=== PATIENT | female | born 1985 | race Caucasian/White ===

== ENCOUNTER 2017-12-12 20:15 | Emergency (ER) | payer OTHER ==
[2017-12-12 20:22] VITALS: TEMP 98.6
--- NOTE | 2017-12-12 21:16 | ED ---
Chest Pain HPI - General Chief Complaint: Chest Pain Stated Complaint: chest pain Time Seen by Provider: 12/12/17 21:15 Source: patient, RN notes reviewed, old records reviewed Mode of arrival: wheelchair Limitations: no limitations - History of Present Illness Initial Comments: This is a 32-year-old female the ER today. This patient has a for evaluation of chest pain chest pain shortness of breath with rapid heart rate. Patient has no significant medical history no heart history no high blood pressure cholesterol no diabetes. Patient has never been to ER for similar issue before. No fevers no cough or congestion or shortness of breath. Patient states she may have pulled muscle unsure of how the -: hour(s) Onset: during rest Pain Location: substernal, right chest Pain Radiation: none Severity: mild, moderate Severity scale (1-10): 7 Consistency: constant Improves With: nothing Worsens With: nothing Treatments Prior to Arrival: none - Related Data Home Medications Medication Instructions Recorded Confirmed Ibuprofen [Motrin Ib] 200 - 800 mg PO Q6H PRN 12/12/17 12/12/17 Allergies Allergy/AdvReac Type Severity Reaction Status Date / Time phenazopyridine HCl Allergy Anaphylaxis Verified 12/12/17 21:28 [From Pyridium] Review of Systems ROS Statement: Those systems with pertinent positive or pertinent negative responses have been documented in the HPI. ROS Other: All systems not noted in ROS Statement are negative. EKG Findings - EKG Comments: EKG Findings:: EKG shows sinus tachycardia rate 120, ND 136, QRS 78, QTc 483 Past Medical History Past Medical History: No Reported History History of Any Multi-Drug Resistant Organisms: None Reported, MRSA Date of last positivie culture/infection: 05/2013 MDRO Source:: buttocks Past Surgical History: No Surgical Hx Reported Past Psychological History: Anxiety, Bipolar, Depression Smoking Status: Current every day smoker Past Alcohol Use History: None Reported Past Drug Use History: None Reported General Exam Limitations: no limitations General appearance: alert, in no apparent distress, anxious Head exam: Present: atraumatic, normocephalic, normal inspection Eye exam: Present: normal appearance, PERRL, EOMI. Absent: scleral icterus, conjunctival injection, periorbital swelling ENT exam: Present: normal exam, mucous membranes moist Neck exam: Present: normal inspection. Absent: tenderness, meningismus, lymphadenopathy Respiratory exam: Present: normal lung sounds bilaterally. Absent: respiratory distress, wheezes, rales, rhonchi, stridor Cardiovascular Exam: Present: regular rate, normal rhythm, normal heart sounds. Absent: systolic murmur, diastolic murmur, rubs, gallop, clicks GI/Abdominal exam: Present: soft, normal bowel sounds. Absent: distended, tenderness, guarding, rebound, rigid Extremities exam: Present: normal inspection, full ROM, normal capillary refill. Absent: tenderness, pedal edema, joint swelling, calf tenderness Back exam: Present: normal inspection Neurological exam: Present: alert, oriented X3, CN II-XII intact Psychiatric exam: Present: normal affect, normal mood Skin exam: Present: warm, dry, intact, normal color. Absent: rash Course Vital Signs 12/12/17 20:17 Temperature 98.6 F Pulse Rate 133 H Respiratory 18 Rate Blood Pressure 129/81 O2 Sat by Pulse 100 Oximetry - Reevaluation(s) Reevaluation #1: 12/12/17 21:42 Medical records thoroughly reviewed with multiple ER visits for nonspecific complaints regarding pain Reevaluation #2: 12/12/17 21:42 Patient's in mild distress crying asking for pain medication Reevaluation #3: 12/12/17 21:42 Studies Chest x-rays negative for acute disease Chest Pain MDM - MDM 49 female with nonspecific chest pain costochondritis given Tylenol here, okay for discharge home Disposition Clinical Impression: Chest pain, Atypical chest pain Disposition: HOME SELF-CARE Condition: Good Instructions: Chest Pain (ED), Costochondritis (ED) Is patient prescribed a controlled substance at d/c from ED?: No Referrals: Campbell Hernandez MD [Primary Care Provider] - 1-2 days
--- NOTE | 2017-12-12 21:24 | XR ---
EXAMINATION: XR chest 2V DATE AND TIME: 12/12/2017 9:19 PM CLINICAL INDICATION: chest pain TECHNIQUE: PA and lateral COMPARISON: 03/24/2013. FINDINGS: The lungs are clear. The pleural spaces are negative. The cardiac silhouette is not enlarged. The remainder of the mediastinal silhouette is unremarkable. The skeletal structures and soft tissues are negative for acute findings. IMPRESSION: NO ACUTE PROCESS.
[2017-12-12] MEDS ORDERED: HYDROcodone/APAP 5-325MG 1 EACH TAB PO STA (21:45)
[2017-12-12] MEDS ORDERED: DIAZEPAM 5 MG TAB PO STA (21:45)
[2017-12-12] MEDS ORDERED: ACETAMINOPHEN TAB 325 MG TAB PO STA (21:45)
[2017-12-12 21:54] VITALS: BP 139/83; PULSE 99; RESP 20
== END 2017-12-12 21:56 | disposition home or self-care (01) ==
LOC: EC 20:15
DX: M94.0 Chondrocostal junction syndrome [Tietze] (principal); R00.0 Tachycardia, unspecified; F17.200 Nicotine dependence, unspecified, uncomplicated; Z86.14 Personal history of Methicillin resistant Staphylococcus aureus infection; Z88.8 Allergy status to other drugs, medicaments and biological substances
CPT/HCPCS: 71046; 93005; 99285

== ENCOUNTER 2018-02-25 21:15 | Emergency (ER) | payer OTHER ==
[2018-02-25] MEDS ORDERED: SODIUM CHLORIDE 0.9% 1,000 ML IV STA (22:11)
[2018-02-25] MEDS ORDERED: IPRATROPIUM-ALBUTEROL 3 ML NEB INHALATION STA (22:14)
--- NOTE | 2018-02-25 22:15 | XR ---
EXAMINATION TYPE: XR chest 2V DATE OF EXAM: 02/25/2018 COMPARISON: 12/12/2017 HISTORY: Chest pain TECHNIQUE: Frontal and lateral views of the chest are obtained. FINDINGS: Heart and mediastinum are normal. Lungs are clear. Diaphragm is normal. Bony thorax appear s normal. There are chest leads. IMPRESSION: Normal chest. No change.
[2018-02-25 23:05] LABS: Appearance,Urine Clear (Clear); Bilirubin,Urine Negative (Negative); Blood,Urine Negative (Negative); Color,Urine Yellow; Glucose,Urine (UA) Negative (Negative); Ketones,Urine Negative (Negative); Leukocyte Esterase,Urine Negative (Negative); Nitrite,Urine Negative (Negative); PH, Urine 5.5 (5.0-8.0); Protein,Urine Negative (Negative); Urobilinogen,Urine <2.0 mg/dL (<2.0)
[2018-02-25 23:06] LABS: Basophils % (A) 0 %; Eosinophils # (A) 0.3 k/uL (0-0.7); Eosinophils % (A) 2 %; HCT 39.9 % (34.0-46.0); HGB 13.4 gm/dL (11.4-16.0); Lymphocytes # (A) 2.7 k/uL (1.0-4.8); Lymphocytes % (A) 22 %; MCH 28.8 pg (25.0-35.0); MCHC 33.5 g/dL (31.0-37.0); MCV 85.9 fL (80.0-100.0); Monocytes # (A) 1.2 k/uL (0-1.0); Monocytes % (A) 10 %; Neutrophils % (A) 64 %; Platelet Count 216 k/uL (150-450); RBC 4.65 m/uL (3.80-5.40); RDW 13.8 % (11.5-15.5); WBC 12.4 k/uL (3.8-10.6)
[2018-02-25 23:15] LABS: ALT 37 U/L (9-52); AST 23 U/L (14-36); Albumin 3.4 g/dL (3.5-5.0); Alkaline Phosphatase 92 U/L (38-126); Anion Gap 7 mmol/L; Blood Urea Nitrogen 12 mg/dL (7-17); Calcium 8.6 mg/dL (8.4-10.2); Carbon Dioxide 25 mmol/L (22-30); Chloride 106 mmol/L (98-107); Glucose 103 mg/dL (74-99); Potassium 4.4 mmol/L (3.5-5.1); Sodium 138 mmol/L (137-145); Total Bilirubin <0.1 mg/dL (0.2-1.3); Total Protein 6.6 g/dL (6.3-8.2)
[2018-02-25] MEDS ORDERED: IBUPROFEN 800 MG TAB PO STA (23:54)
[2018-02-26] MEDS ORDERED: ONDANSETRON 4 MG/2 ML VIAL IVP STA (00:28)
[2018-02-26 00:42] VITALS: TEMP 98.6
--- NOTE | 2018-02-26 00:51 | CT ---
EXAMINATION TYPE: CT soft tissue neck w con DATE OF EXAM: 02/26/2018 12:23 AM COMPARISON: None HISTORY: Sore throat CT DLP: 276.30 mGycm Automated exposure control for dose reduction was used. CONTRAST: CT scan of the neck is performed following with IV Contrast, patient injected with 100 mL of Isovue 3 00. Axial images are obtained, coronal and sagittal reformatted images are reviewed. FINDINGS: Multiple axial sections were obtained from the level of the pulmonary artery to the mid orbits with i ntravenous contrast. There is mucosal thickening in the ethmoid air cells. Parotid glands are symmetric. Submandibular tang ivary glands are symmetric. Epiglottis is normal. There is no evidence of a pharyngeal mass. The trac hea appears normal. There is enlargement of the adenoids and significant narrowing of the nasopharyng eal airway. There is mild symmetric hypertrophy of the tonsils. There is normal branching pattern of the great vessels on the aortic arch. Thyroid gland is symmetric . There is normal contrast opacification of the carotid arteries and jugular veins. There is normal c ontrast opacification of the vertebral arteries. There are numerous bilateral anterior triangle cervi abhilash lymph nodes. Lymph nodes measure up to 2 cm. There is spondylosis at C5-6 with endplate spur form ation and some mild encroachment on the spinal canal. IMPRESSION: There is moderate anterior triangle bilateral cervical lymphadenopathy. There is enlarge ment of the tonsils and adenoids. This is consistent with nonspecific inflammatory disease.
--- NOTE | 2018-02-26 01:00 | ED ---
General Adult HPI - General Chief complaint: Upper Respiratory Infection Stated complaint: Sore throat Source: patient, RN notes reviewed, old records reviewed Mode of arrival: ambulatory Limitations: no limitations - History of Present Illness Initial comments: 33-year-old female patient no pertinent past medical history presents to ED with 3 days of sore throat, painful swallowing. Patient also complains of dry cough of 3 days, some shortness of breath. Patient complains of nausea without emesis. Patient denies chest pain. Patient denies abdominal pain. Patient dysuria. Patient states that she believes she has strep throat, states that she has had severe strep throat as an adult per her history. Systemic: Pt denies fatigue, myalgia, fever/chills, rash. Pt denies weakness, night sweats, weight loss. Neuro: Pt denies headache, visual disturbances, syncope or pre-syncope. HEENT: Pt denies ocular discharge or irritation, otalgia, rhinorrhea, or notable lymphadenopathy. Cardiopulmonary: Pt denies chest pain, heart palpitations, dyspnea on exertion. Abdominal/GI: Pt denies abdominal pain, n/v/d. : Pt denies dysuria, burning w/ urination, frequency/urgency. Denies new onset urinary or bowel incontinence. MSK: Pt denies myalgia, loss of strength or function in extremities. Neuro: Pt denies new onset weakness, paresthesias. - Related Data Home Medications Medication Instructions Recorded Confirmed Ibuprofen [Motrin Ib] 200 - 800 mg PO Q6H PRN 12/12/17 12/12/17 Previous Rx's Medication Instructions Recorded Acetaminophen Tab [Tylenol Tab] 500 mg PO Q4H #30 tablet 12/12/17 Naproxen [Naprosyn] 500 mg PO Q12HR PRN #30 tab 12/12/17 Amoxicillin 500 mg PO Q12HR 10 Days #20 day 02/26/18 Allergies Allergy/AdvReac Type Severity Reaction Status Date / Time phenazopyridine HCl Allergy Anaphylaxis Verified 02/25/18 21:21 [From Pyridium] Review of Systems ROS Statement: Those systems with pertinent positive or pertinent negative responses have been documented in the HPI. ROS Other: All systems not noted in ROS Statement are negative. Past Medical History Past Medical History: No Reported History History of Any Multi-Drug Resistant Organisms: None Reported, MRSA Date of last positivie culture/infection: 05/2013 MDRO Source:: buttocks Past Surgical History: No Surgical Hx Reported Past Psychological History: Anxiety, Bipolar, Depression Smoking Status: Current every day smoker Past Alcohol Use History: None Reported Past Drug Use History: None Reported General Exam - General Exam Comments Initial Comments: Constitutional: NAD, AOX3, Pt has pleasant affect. HEENT: NC/AT, trachea midline, neck supple, mild anterior cervical lymphadenopathy. Posterior pharynx non erythematous, without exudates. External ears appear normal, without discharge. Mucous membranes moist. Eyes PERRLA, EOM intact. There is no scleral icterus. No pallor noted. No muffled are up-to- date or worse. No difficulty handling secretions. No posterior pharyngeal edema. Cardiopulmonary: RRR, no murmurs, rubs or gallops, no JVD noted. Lungs CTAB in anterior and posterior sloan. No peripheral edema. Abdominal exam: Abdomen soft and non-distended. Abdomen non-tender to palpation in all 4 quadrants. Bowel sounds active in LLQ. No hepatosplenomegaly. No ecchymosis no respirations distress. Neuro: CN II-XII grossly intact. No nuchal rigidity. MSK: No posterior calf tenderness bilaterally, homans sign negative bilaterally. Posterior tibialis and radial pulse +2 bilaterally. Sensation intact in upper and lower extremities. Full active ROM in upper and lower extremities, 5/5 stregnth. Limitations: no limitations Course Vital Signs 02/25/18 02/25/18 02/25/18 21:17 21:30 21:32 Temperature 98.4 F 99.1 F Pulse Rate 135 H 125 H Respiratory 24 20 21 Rate Blood Pressure 123/79 123/77 O2 Sat by Pulse 99 99 Oximetry 02/25/18 02/25/18 02/25/18 21:46 22:52 22:59 Temperature 100.2 F H Pulse Rate 114 H 112 H 117 H Respiratory 22 Rate Blood Pressure 118/80 O2 Sat by Pulse 97 Oximetry 02/25/18 02/26/18 02/26/18 23:06 00:40 02:45 Temperature 98.6 F Pulse Rate 111 H 112 H 95 Respiratory 20 16 Rate Blood Pressure 124/68 90/48 O2 Sat by Pulse 99 98 Oximetry Medical Decision Making - Medical Decision Making 33-year-old female patient no pertinent past medical history presents to ED with 3 days of sore throat, painful swallowing. Patient also complains of rectal cough of 3 days, some shortness of breath. Patient complains of nausea without emesis. Patient denies chest pain. Patient denies abdominal pain. Patient dysuria. Physical exam displayed mild tachycardia which resolved with IV fluids, mild anterior cervical lymphadenopathy. No other acute pathology. Laboratory investigations displayed slight leukocytosis at 12.4. Negative d- dimer. Non impressive CMP. Ua non impressive. Influenza, strep swabs negative. CT soft tissue neck with contrast displayed moderate anterior cervical lymphadenopathy. Enlargement of tonsils and adenoids. Consistent with nonspecific inflammatory disease. Chest x-ray displayed no acute process. Patient was given 2 L of fluid, 1 g Rocephin ED. EKG displayed tachycardia but no concern for acute ischemia or pathology. Pt to be treated for pharyngitis. Amoxicillin 500mg BID x10 days. Patient to follow up with PCP in 1-2 days. Patient return to ED if any new signs or symptoms develop or if condition worsens in anyway. Case discussed and pt discharged by Dr. Jules. - Lab Data Result diagrams: 02/25/18 22:47 02/25/18 22:47 Lab Results 02/25/18 02/25/18 02/25/18 Range/Units 21:53 21:53 22:47 WBC 12.4 H (3.8-10.6) k/uL RBC 4.65 (3.80-5.40) m/uL Hgb 13.4 (11.4-16.0) gm/dL Hct 39.9 (34.0-46.0) % MCV 85.9 (80.0-100.0) fL MCH 28.8 (25.0-35.0) pg MCHC 33.5 (31.0-37.0) g/dL RDW 13.8 (11.5-15.5) % Plt Count 216 (150-450) k/uL Neutrophils % 64 % Lymphocytes % 22 % Monocytes % 10 % Eosinophils % 2 % Basophils % 0 % Neutrophils # 8.0 H (1.3-7.7) k/uL Lymphocytes # 2.7 (1.0-4.8) k/uL Monocytes # 1.2 H (0-1.0) k/uL Eosinophils # 0.3 (0-0.7) k/uL Basophils # 0.0 (0-0.2) k/uL D-Dimer (<0.60) mg/L FEU Sodium (137-145) mmol/L Potassium (3.5-5.1) mmol/L Chloride (98-107) mmol/L Carbon Dioxide (22-30) mmol/L Anion Gap mmol/L BUN (7-17) mg/dL Creatinine (0.52-1.04) mg/dL Est GFR (CKD-EPI)AfAm (>60 ml/min/1.73 sqM) Est GFR (CKD-EPI)NonAf (>60 ml/min/1.73 sqM) Glucose (74-99) mg/dL Plasma Lactic Acid Margarito (0.7-2.0) mmol/L Calcium (8.4-10.2) mg/dL Total Bilirubin (0.2-1.3) mg/dL AST (14-36) U/L ALT (9-52) U/L Alkaline Phosphatase (38-126) U/L Total Protein (6.3-8.2) g/dL Albumin (3.5-5.0) g/dL Urine Color Urine Appearance (Clear) Urine pH (5.0-8.0) Ur Specific [place] (1.001-1.035) Urine Protein (Negative) Urine Glucose (UA) (Negative) Urine Ketones (Negative) Urine Blood (Negative) Urine Nitrite (Negative) Urine Bilirubin (Negative) Urine Urobilinogen (<2.0) mg/dL Ur Leukocyte Esterase (Negative) Urine HCG, Qual (Not Detectd) Influenza Type A RNA Not Detected (Not Detectd) Influenza Type B (PCR) Not Detected (Not Detectd) Group A Strep Rapid Negative (Negative) 02/25/18 02/25/18 02/25/18 Range/Units 22:47 22:47 22:47 WBC (3.8-10.6) k/uL RBC (3.80-5.40) m/uL Hgb (11.4-16.0) gm/dL Hct (34.0-46.0) % MCV (80.0-100.0) fL MCH (25.0-35.0) pg MCHC (31.0-37.0) g/dL RDW (11.5-15.5) % Plt Count (150-450) k/uL Neutrophils % % Lymphocytes % % Monocytes % % Eosinophils % % Basophils % % Neutrophils # (1.3-7.7) k/uL Lymphocytes # (1.0-4.8) k/uL Monocytes # (0-1.0) k/uL Eosinophils # (0-0.7) k/uL Basophils # (0-0.2) k/uL D-Dimer (<0.60) mg/L FEU Sodium 138 (137-145) mmol/L Potassium 4.4 (3.5-5.1) mmol/L Chloride 106 (98-107) mmol/L Carbon Dioxide 25 (22-30) mmol/L Anion Gap 7 mmol/L BUN 12 (7-17) mg/dL Creatinine 0.67 (0.52-1.04) mg/dL Est GFR (CKD-EPI)AfAm >90 (>60 ml/min/1.73 sqM) Est GFR (CKD-EPI)NonAf >90 (>60 ml/min/1.73 sqM) Glucose 103 H (74-99) mg/dL Plasma Lactic Acid Margarito (0.7-2.0) mmol/L Calcium 8.6 (8.4-10.2) mg/dL Total Bilirubin <0.1 L (0.2-1.3) mg/dL AST 23 (14-36) U/L ALT 37 (9-52) U/L Alkaline Phosphatase 92 (38-126) U/L Total Protein 6.6 (6.3-8.2) g/dL Albumin 3.4 L (3.5-5.0) g/dL Urine Color Yellow Urine Appearance Clear (Clear) Urine pH 5.5 (5.0-8.0) Ur Specific [place] 1.020 (1.001-1.035) Urine Protein Negative (Negative) Urine Glucose (UA) Negative (Negative) Urine Ketones Negative (Negative) Urine Blood Negative (Negative) Urine Nitrite Negative (Negative) Urine Bilirubin Negative (Negative) Urine Urobilinogen <2.0 (<2.0) mg/dL Ur Leukocyte Esterase Negative (Negative) Urine HCG, Qual Not Detected (Not Detectd) Influenza Type A RNA (Not Detectd) Influenza Type B (PCR) (Not Detectd) Group A Strep Rapid (Negative) 02/25/18 02/25/18 Range/Units 22:47 22:47 WBC (3.8-10.6) k/uL RBC (3.80-5.40) m/uL Hgb (11.4-16.0) gm/dL Hct (34.0-46.0) % MCV (80.0-100.0) fL MCH (25.0-35.0) pg MCHC (31.0-37.0) g/dL RDW (11.5-15.5) % Plt Count (150-450) k/uL Neutrophils % % Lymphocytes % % Monocytes % % Eosinophils % % Basophils % % Neutrophils # (1.3-7.7) k/uL Lymphocytes # (1.0-4.8) k/uL Monocytes # (0-1.0) k/uL Eosinophils # (0-0.7) k/uL Basophils # (0-0.2) k/uL D-Dimer 0.47 (<0.60) mg/L FEU Sodium (137-145) mmol/L Potassium (3.5-5.1) mmol/L Chloride (98-107) mmol/L Carbon Dioxide (22-30) mmol/L Anion Gap mmol/L BUN (7-17) mg/dL Creatinine (0.52-1.04) mg/dL Est GFR (CKD-EPI)AfAm (>60 ml/min/1.73 sqM) Est GFR (CKD-EPI)NonAf (>60 ml/min/1.73 sqM) Glucose (74-99) mg/dL Plasma Lactic Acid Margar[place] 1.2 (0.7-2.0) mmol/L Calcium (8.4-10.2) mg/dL Total Bilirubin (0.2-1.3) mg/dL AST (14-36) U/L ALT (9-52) U/L Alkaline Phosphatase (38-126) U/L Total Protein (6.3-8.2) g/dL Albumin (3.5-5.0) g/dL Urine Color Urine Appearance (Clear) Urine pH (5.0-8.0) Ur Specific [place] (1.001-1.035) Urine Protein (Negative) Urine Glucose (UA) (Negative) Urine Ketones (Negative) Urine Blood (Negative) Urine Nitrite (Negative) Urine Bilirubin (Negative) Urine Urobilinogen (<2.0) mg/dL Ur Leukocyte Esterase (Negative) Urine HCG, Qual (Not Detectd) Influenza Type A RNA (Not Detectd) Influenza Type B (PCR) (Not Detectd) Group A Strep Rapid (Negative) - EKG Data -: EKG Interpreted by Me EKG Comments: Ventricular rate 114, painful 1:30, QRS 104, QT/QTC 338/465. Sinus tachycardia otherwise normal EKG. Disposition Clinical Impression: Pharyngitis Disposition: HOME SELF-CARE Condition: Good Instructions: Pharyngitis (ED) Additional Instructions: Patient to adhere to previously discussed treatment plan and will take medication(s) as directed. Patient to follow up with PCP in 1-2 days. Patient to return to ED if symptoms do not improve. Prescriptions: Amoxicillin 500 mg PO Q12HR 10 Days #20 day Is patient prescribed a controlled substance at d/c from ED?: No Referrals: Campbell Hernandez MD [Primary Care Provider] - 1-2 days
[2018-02-26] MEDS ORDERED: SODIUM CHLORIDE 0.9% 1,000 ML IV STA (01:19)
[2018-02-26] MEDS ORDERED: ACET/COD 240MG/24MG LIQ 10 ML SYRG PO STA (01:27)
[2018-02-26] MEDS ORDERED: traMADol 50 MG TAB PO STA (01:38)
[2018-02-26 02:49] VITALS: BP 90/48; PULSE 95; RESP 16
== END 2018-02-26 02:45 | disposition home or self-care (01) ==
LOC: EC 21:15
DX: J02.9 Acute pharyngitis, unspecified (principal); R06.02 Shortness of breath; R11.0 Nausea; R00.0 Tachycardia, unspecified; R59.0 Localized enlarged lymph nodes; D72.829 Elevated white blood cell count, unspecified; F17.200 Nicotine dependence, unspecified, uncomplicated; Z86.14 Personal history of Methicillin resistant Staphylococcus aureus infection; Z88.8 Allergy status to other drugs, medicaments and biological substances
CPT/HCPCS: 36415; 94640; 93005; 85379; 80053; 83605; 85025; 81003; 81025; 87081; 87430; 87502; 71046; 70491; 99284; 96365; 96375; 96361 ×2; J2405; J0696; Q9967

== ENCOUNTER 2018-05-03 04:17 | Emergency (ER) | payer OTHER ==
[2018-05-03 04:26] VITALS: BP 129/87; PULSE 98; RESP 20; TEMP 98.3
--- NOTE | 2018-05-03 04:44 | ED ---
ENT HPI - General Chief complaint: ENT Stated complaint: Ear pain Time Seen by Provider: 05/03/18 04:28 Source: patient Mode of arrival: ambulatory Limitations: no limitations - History of Present Illness Initial comments: This is a 33-year-old female who presents emergency department for right ear pain. She states that she had just taken a shower and was cleaning her ear with a Q-tip. Her dog ran into her arm in the Q-tip was shoved into her ear. She states that she does have some hearing loss out of that ear. She also admits to some pain and bleeding from that ear. She denies any headaches. No numbness or tingling. No other injuries. - Related Data Previous Rx's Medication Instructions Recorded Ciprofloxacin-Dexameth [Ciprodex 4 drops RIGHT EAR BID 7 Days #1 05/03/18 Otic Susp] bottle Allergies Allergy/AdvReac Type Severity Reaction Status Date / Time phenazopyridine HCl Allergy Anaphylaxis Verified 05/03/18 04:26 [From Pyridium] Review of Systems ROS Statement: Those systems with pertinent positive or pertinent negative responses have been documented in the HPI. ROS Other: All systems not noted in ROS Statement are negative. Past Medical History Past Medical History: No Reported History History of Any Multi-Drug Resistant Organisms: None Reported, MRSA Date of last positivie culture/infection: 05/2013 MDRO Source:: buttocks Past Surgical History: No Surgical Hx Reported Past Psychological History: Anxiety, Bipolar, Depression Smoking Status: Current every day smoker Past Alcohol Use History: None Reported Past Drug Use History: None Reported General Exam - General Exam Comments Initial Comments: Constitutional: [Awake alert] [Appears comfortable] Head: [Normocephalic atraumatic] Eyes: [no conjunctival injection] [No scleral icterus] [EOMI] ENT: The right external ear canal has some blood. No lacerations are visualized. The TM does appear to be torn and perforated at the anterior aspect. The posterior aspect seems to be intact however difficult to visualize because of blood. No foreign bodies were noticed. The area did appear clean. Left TM was normal. Neck: [No JVD] [Supple] Heart: [Regular rate rhythm] [normal S1-S2] [no murmurs] Lungs: [Clear to auscultation bilaterally] [No wheezing] [No rales] Abdomen: [Soft] [nondistended] [nontender] Extremities: [Non edematous] [DP pulses intact] [Radial pulses intact] Neuro: [A&Ox3] [No focal neurologic deficits] Psych: [Appropriate mood and affect] Limitations: no limitations Course Vital Signs 05/03/18 04:22 Temperature 98.3 F Pulse Rate 98 Respiratory 20 Rate Blood Pressure 129/87 O2 Sat by Pulse 97 Oximetry Medical Decision Making - Medical Decision Making This is a 33-year-old came in for right ear injury. The patient did appear to have a perforated tympanic membrane. Due to this fact going to start her on Ciprodex drops. She was instructed to call ENT today to get follow-up for evaluation. Told to return if she had worsening pain or any other symptoms. All questions answered. Disposition Clinical Impression: Perforated tympanic membrane Disposition: HOME SELF-CARE Condition: Stable Instructions (If sedation given, give patient instructions): Ruptured Eardrum ( ED) Additional Instructions: No swimming. Keep R ear dry at all times. Follow up with ENT tomorrow. Prescriptions: Ciprofloxacin-Dexameth [Ciprodex Otic Susp] 4 drops RIGHT EAR BID 7 Days #1 bottle Is patient prescribed a controlled substance at d/c from ED?: No Referrals: Campbell Hernandez MD [Primary Care Provider] - 1-2 days Samuel Raza MD [STAFF PHYSICIAN] - 1-2 days
== END 2018-05-03 04:51 | disposition home or self-care (01) ==
LOC: EC 04:17
DX: S09.21XA Traumatic rupture of right ear drum, initial encounter (principal); F17.200 Nicotine dependence, unspecified, uncomplicated; Z86.14 Personal history of Methicillin resistant Staphylococcus aureus infection; Z88.8 Allergy status to other drugs, medicaments and biological substances; W54.1XXA Struck by dog, initial encounter; Y93.E8 Activity, other personal hygiene
CPT/HCPCS: 99282

== ENCOUNTER 2018-06-12 17:18 | Emergency (ER) | payer OTHER ==
[2018-06-12] MEDS ORDERED: SODIUM CHLORIDE 0.9% 1,000 ML IV STA (18:18)
[2018-06-12] MEDS ORDERED: PANTOPRAZOLE 40 MG/10 ML VIAL IVP STA (18:18)
[2018-06-12] MEDS ORDERED: KETOROLAC 30 MG/ML 1 ML VIAL IVP STA (18:18)
[2018-06-12] MEDS ORDERED: ONDANSETRON 4 MG/2 ML VIAL IVP STA (18:18)
--- NOTE | 2018-06-12 18:33 | ED ---
Back Pain HPI - General Chief Complaint: Back Pain/Injury Stated Complaint: flank pain Time Seen by Provider: 06/12/18 18:09 Source: patient, RN notes reviewed, old records reviewed Limitations: no limitations - History of Present Illness Initial Comments: Patient is a 33-year-old female presents today with lower back pain and reports that she has bilateral kidney pain. Patient states that she has noticed recurrence been dark. She has had history of urinary tract infections. She denies any fever but reports she's felt chilled. She denies any nausea or vomiting. She states that she's had normal stools. Patient states that she has had no other complaints. - Related Data Home Medications Medication Instructions Recorded Confirmed Ibuprofen [Motrin] 800 mg PO TID PRN 06/12/18 06/12/18 Allergies Allergy/AdvReac Type Severity Reaction Status Date / Time phenazopyridine HCl Allergy Anaphylaxis Verified 06/12/18 17:50 [From Pyridium] Review of Systems ROS Statement: Those systems with pertinent positive or pertinent negative responses have been documented in the HPI. ROS Other: All systems not noted in ROS Statement are negative. Past Medical History Past Medical History: No Reported History History of Any Multi-Drug Resistant Organisms: None Reported, MRSA Date of last positivie culture/infection: 05/2013 MDRO Source:: buttocks Past Surgical History: No Surgical Hx Reported Past Psychological History: Anxiety, Bipolar, Depression Smoking Status: Current every day smoker Past Alcohol Use History: None Reported Past Drug Use History: None Reported General Exam - General Exam Comments Initial Comments: 33-year-old female. Alert and oriented 3. Patient appears in no significant distress. Limitations: no limitations General appearance: alert, in no apparent distress Head exam: Present: atraumatic, normocephalic, normal inspection Eye exam: Present: normal appearance, PERRL, EOMI. Absent: scleral icterus, conjunctival injection, periorbital swelling ENT exam: Present: normal exam, mucous membranes moist Neck exam: Present: normal inspection. Absent: tenderness, meningismus, lymphadenopathy Respiratory exam: Present: normal lung sounds bilaterally. Absent: respiratory distress, wheezes, rales, rhonchi, stridor Cardiovascular Exam: Present: regular rate, normal rhythm, normal heart sounds. Absent: systolic murmur, diastolic murmur, rubs, gallop, clicks GI/Abdominal exam: Present: soft, normal bowel sounds, other (Bilateral CVA tenderness.). Absent: distended, tenderness, guarding, rebound, rigid Extremities exam: Present: normal inspection, full ROM, normal capillary refill. Absent: tenderness, pedal edema, joint swelling, calf tenderness Back exam: Present: normal inspection Neurological exam: Present: alert, oriented X3, CN II-XII intact Psychiatric exam: Present: normal affect, normal mood Skin exam: Present: warm, dry, intact, normal color. Absent: rash Course Vital Signs 06/12/18 17:42 Temperature 98.3 F Pulse Rate 91 Respiratory 18 Rate Blood Pressure 151/92 O2 Sat by Pulse 98 Oximetry Medical Decision Making - Medical Decision Making Patient is a 33-year-old female presents emergency room today with bilateral back pain and complains kidney pain. Patient states she's had subjective chills . At this time vital signs are stable. No fever. Patient has been given fluids and Toradol. KUB is negative for any acute process. Lab work was reviewed and unremarkable. Urinalysis shows no infection or blood. Discussed the pain can be osseous skeletal nature. I discussed that Patient should follow-up with her PCP. Discharge and Patient and temperature medicine. All cushions answer return parameters were discussed. - Lab Data Result diagrams: 06/12/18 18:35 06/12/18 18:35 Lab Results 06/12/18 06/12/18 06/12/18 Range/Units 18:35 18:35 18:35 WBC 8.0 (3.8-10.6) k/uL RBC 4.72 (3.80-5.40) m/uL Hgb 13.1 (11.4-16.0) gm/dL Hct 39.5 (34.0-46.0) % MCV 83.7 (80.0-100.0) fL MCH 27.8 (25.0-35.0) pg MCHC 33.2 (31.0-37.0) g/dL RDW 13.9 (11.5-15.5) % Plt Count 224 (150-450) k/uL Neutrophils % 53 % Lymphocytes % 32 % Monocytes % 9 % Eosinophils % 4 % Basophils % 1 % Neutrophils # 4.2 (1.3-7.7) k/uL Lymphocytes # 2.6 (1.0-4.8) k/uL Monocytes # 0.7 (0-1.0) k/uL Eosinophils # 0.3 (0-0.7) k/uL Basophils # 0.0 (0-0.2) k/uL Sodium 142 (137-145) mmol/L Potassium 3.7 (3.5-5.1) mmol/L Chloride 109 H (98-107) mmol/L Carbon Dioxide 27 (22-30) mmol/L Anion Gap 6 mmol/L BUN 8 (7-17) mg/dL Creatinine 0.69 (0.52-1.04) mg/dL Est GFR (CKD-EPI)AfAm >90 (>60 ml/min/1.73 sqM) Est GFR (CKD-EPI)NonAf >90 (>60 ml/min/1.73 sqM) Glucose 90 (74-99) mg/dL Calcium 8.7 (8.4-10.2) mg/dL Total Bilirubin 0.2 (0.2-1.3) mg/dL AST 15 (14-36) U/L ALT 31 (9-52) U/L Alkaline Phosphatase 69 (38-126) U/L Total Protein 6.2 L (6.3-8.2) g/dL Albumin 3.4 L (3.5-5.0) g/dL Amylase 35 (30-110) U/L Lipase 69 (23-300) U/L Urine Color Yellow Urine Appearance Clear (Clear) Urine pH 6.5 (5.0-8.0) Ur Specific [place] 1.018 (1.001-1.035) Urine Protein Negative (Negative) Urine Glucose (UA) Negative (Negative) Urine Ketones Negative (Negative) Urine Blood Negative (Negative) Urine Nitrite Negative (Negative) Urine Bilirubin Negative (Negative) Urine Urobilinogen <2.0 (<2.0) mg/dL Ur Leukocyte Esterase Negative (Negative) - Radiology Data Radiology results: report reviewed Negative KUB exam. Disposition Clinical Impression: Flank pain Disposition: HOME SELF-CARE Condition: Good Instructions (If sedation given, give patient instructions): Flank Pain (ED) Additional Instructions: Patient advised to follow-up with your primary care physician. Patient Motrin Tylenol for pain. Make sure the uterus in plenty of fluids. Return to emergency department if any alarming signs or symptoms occur. Is patient prescribed a controlled substance at d/c from ED?: No Referrals: Campbell Hernandez MD [Primary Care Provider] - 1-2 days Time of Disposition: 19:57
[2018-06-12 18:49] LABS: Basophils % (A) 1 %; Eosinophils # (A) 0.3 k/uL (0-0.7); Eosinophils % (A) 4 %; HCT 39.5 % (34.0-46.0); HGB 13.1 gm/dL (11.4-16.0); Lymphocytes # (A) 2.6 k/uL (1.0-4.8); Lymphocytes % (A) 32 %; MCH 27.8 pg (25.0-35.0); MCHC 33.2 g/dL (31.0-37.0); MCV 83.7 fL (80.0-100.0); Monocytes # (A) 0.7 k/uL (0-1.0); Monocytes % (A) 9 %; Neutrophils # (A) 4.2 k/uL (1.3-7.7); Neutrophils % (A) 53 %; Platelet Count 224 k/uL (150-450); RBC 4.72 m/uL (3.80-5.40); RDW 13.9 % (11.5-15.5)
[2018-06-12 18:50] LABS: Appearance,Urine Clear (Clear); Bilirubin,Urine Negative (Negative); Blood,Urine Negative (Negative); Color,Urine Yellow; Glucose,Urine (UA) Negative (Negative); Ketones,Urine Negative (Negative); Leukocyte Esterase,Urine Negative (Negative); Nitrite,Urine Negative (Negative); PH, Urine 6.5 (5.0-8.0); Protein,Urine Negative (Negative); Specific Gravity,Urine 1.018 (1.001-1.035); Urobilinogen,Urine <2.0 mg/dL (<2.0)
[2018-06-12 19:08] LABS: ALT 31 U/L (9-52); AST 15 U/L (14-36); Albumin 3.4 g/dL (3.5-5.0); Alkaline Phosphatase 69 U/L (38-126); Amylase 35 U/L (30-110); Anion Gap 6 mmol/L; Blood Urea Nitrogen 8 mg/dL (7-17); Calcium 8.7 mg/dL (8.4-10.2); Carbon Dioxide 27 mmol/L (22-30); Chloride 109 mmol/L (98-107); Glucose 90 mg/dL (74-99); Lipase 69 U/L (23-300); Potassium 3.7 mmol/L (3.5-5.1); Sodium 142 mmol/L (137-145); Total Bilirubin 0.2 mg/dL (0.2-1.3); Total Protein 6.2 g/dL (6.3-8.2)
--- NOTE | 2018-06-12 19:19 | XR ---
EXAMINATION TYPE: XR KUB 2 views DATE OF EXAM: 06/12/2018 COMPARISON: 02/15/2015 HISTORY: Lower abdominal pain and lower back pain TECHNIQUE: 2 upright views FINDINGS: Visualized lung bases and pleural spaces are negative. There is no pneumoperitoneum or pneumatosis. Bowel gas pattern is normal. No acute skeletal or soft tissue findings. Bilateral phleboliths are noted, greater on the left. IMPRESSION: NEGATIVE EXAMINATION.
[2018-06-12 19:58] VITALS: BP 140/92; PULSE 73; RESP 19; TEMP 98
== END 2018-06-12 20:09 | disposition home or self-care (01) ==
LOC: EC 17:18
DX: R10.9 Unspecified abdominal pain (principal); M54.5 Low back pain; R68.83 Chills (without fever); F17.200 Nicotine dependence, unspecified, uncomplicated; Z88.8 Allergy status to other drugs, medicaments and biological substances
CPT/HCPCS: 36415; 80053; 82150; 83690; 85025; 81003; 87086; 74018; 99284; 96374; 96375 ×2; 96361; J2405; J1885; C9113

== ENCOUNTER 2018-08-20 14:53 | Emergency (ER) | payer OTHER ==
[2018-08-20 15:00] VITALS: RESP 18
[2018-08-20] MEDS ORDERED: SODIUM CHLORIDE 0.9% 2,000 ML IV STA (15:25)
[2018-08-20] MEDS ORDERED: diphenhydrAMINE 50 MG/ML 1 ML VIAL IVP STA (15:25)
[2018-08-20] MEDS ORDERED: METOCLOPRAMIDE 5 MG/ML 2 ML VIAL IVP STA (15:25)
--- NOTE | 2018-08-20 15:27 | ED ---
General Adult HPI - General Chief complaint: Nausea/Vomiting/Diarrhea Stated complaint: vomiting Time Seen by Provider: 08/20/18 15:07 Source: patient, RN notes reviewed, old records reviewed Mode of arrival: ambulatory Limitations: no limitations - History of Present Illness Initial comments: 33-year-old female presents emergency department today for complaints of nausea and vomiting diarrhea. She reports she's had symptoms for 3 days. She just fee ls generally fatigued. She reports is 10 weeks . She states that she is status post follow-up with Dr. Macdonald. Patient said G6 PD 3 female. Patient states that she has no chest pain or shortness of breath. She denies any fevers or specific abdominal pain. - Related Data Home Medications Medication Instructions Recorded Confirmed Ibuprofen [Motrin] 800 mg PO TID PRN 06/12/18 08/20/18 Previous Rx's Medication Instructions Recorded Cephalexin [Keflex] 500 mg PO Q6HR 3 Days #12 cap 08/20/18 Metoclopramide [Reglan] 10 mg PO ACHS #12 tab 08/20/18 Allergies Allergy/AdvReac Type Severity Reaction Status Date / Time phenazopyridine HCl Allergy Anaphylaxis Verified 08/20/18 15:33 [From Pyridium] Review of Systems ROS Statement: Those systems with pertinent positive or pertinent negative responses have been documented in the HPI. ROS Other: All systems not noted in ROS Statement are negative. Past Medical History Past Medical History: No Reported History History of Any Multi-Drug Resistant Organisms: None Reported, MRSA Date of last positivie culture/infection: 05/2013 MDRO Source:: buttocks Past Surgical History: No Surgical Hx Reported Past Psychological History: Anxiety, Bipolar, Depression Smoking Status: Current every day smoker Past Alcohol Use History: None Reported Past Drug Use History: None Reported General Exam - General Exam Comments Initial Comments: This is a 33-year-old female. Alert and oriented. No distress. Limitations: no limitations General appearance: alert, in no apparent distress Head exam: Present: atraumatic, normocephalic, normal inspection Eye exam: Present: normal appearance ENT exam: Present: normal exam, mucous membranes moist Neck exam: Present: normal inspection. Absent: tenderness, meningismus, lymphadenopathy Respiratory exam: Present: normal lung sounds bilaterally. Absent: respiratory distress, wheezes, rales, rhonchi, stridor Cardiovascular Exam: Present: regular rate, normal rhythm, normal heart sounds. Absent: systolic murmur, diastolic murmur, rubs, gallop, clicks GI/Abdominal exam: Present: soft, normal bowel sounds. Absent: distended, tenderness, guarding, rebound, rigid Extremities exam: Present: normal inspection, full ROM, normal capillary refill. Absent: tenderness, pedal edema, joint swelling, calf tenderness Back exam: Present: normal inspection Neurological exam: Present: alert, oriented X3, CN II-XII intact Psychiatric exam: Present: normal affect Skin exam: Present: warm, dry, intact, normal color. Absent: rash Course Vital Signs 08/20/18 08/20/18 14:57 17:12 Temperature 98.0 F 97.8 F Pulse Rate 114 H 79 Respiratory 18 18 Rate Blood Pressure 107/66 113/70 O2 Sat by Pulse 100 97 Oximetry Medical Decision Making - Medical Decision Making Patient is a 33-year-old female presents return today, 10 weeks . She's had nausea vomiting diarrhea for the past 3 days. Patient reports the family in her home is also having some GI symptoms. Patient was given fluids labwork obtained. Ultrasound shows a viable intrauterine with heart rate of 165. Patient is advised follow up with [facility]. Urinalysis does show some bacteria. We'll treat for asymptomatic bacteriuria in with Keflex. I discussed that she follow up with her regular doctor and [facility]. Also given prescription for Reglan. On reevaluation Patient is tolerating fluids, and otherwise appears well. - Lab Data Result diagrams: 08/20/18 15:51 08/20/18 15:51 Lab Results 08/20/18 08/20/18 08/20/18 Range/Units 15:51 15:51 15:51 WBC 12.0 H (3.8-10.6) k/uL RBC 4.58 (3.80-5.40) m/uL Hgb 12.7 (11.4-16.0) gm/dL Hct 38.7 (34.0-46.0) % MCV 84.4 (80.0-100.0) fL MCH 27.7 (25.0-35.0) pg MCHC 32.8 (31.0-37.0) g/dL RDW 14.7 (11.5-15.5) % Plt Count 266 (150-450) k/uL Neutrophils % 75 % Lymphocytes % 17 % Monocytes % 5 % Eosinophils % 2 % Basophils % 0 % Neutrophils # 9.0 H (1.3-7.7) k/uL Lymphocytes # 2.0 (1.0-4.8) k/uL Monocytes # 0.6 (0-1.0) k/uL Eosinophils # 0.2 (0-0.7) k/uL Basophils # 0.0 (0-0.2) k/uL Sodium 137 (137-145) mmol/L Potassium 4.3 (3.5-5.1) mmol/L Chloride 106 (98-107) mmol/L Carbon Dioxide 26 (22-30) mmol/L Anion Gap 5 mmol/L BUN 6 L (7-17) mg/dL Creatinine 0.50 L (0.52-1.04) mg/dL Est GFR (CKD-EPI)AfAm >90 (>60 ml/min/1.73 sqM) Est GFR (CKD-EPI)NonAf >90 (>60 ml/min/1.73 sqM) Glucose 93 (74-99) mg/dL Calcium 8.7 (8.4-10.2) mg/dL Total Bilirubin 0.2 (0.2-1.3) mg/dL AST 19 (14-36) U/L ALT 40 (9-52) U/L Alkaline Phosphatase 97 (38-126) U/L Total Protein 6.6 (6.3-8.2) g/dL Albumin 3.5 (3.5-5.0) g/dL Urine Color Yellow Urine Appearance Cloudy H (Clear) Urine pH 6.0 (5.0-8.0) Ur Specific [place] 1.025 (1.001-1.035) Urine Protein Trace H (Negative) Urine Glucose (UA) Negative (Negative) Urine Ketones Negative (Negative) Urine Blood Negative (Negative) Urine Nitrite Negative (Negative) Urine Bilirubin Negative (Negative) Urine Urobilinogen 2.0 (<2.0) mg/dL Ur Leukocyte Esterase Trace H (Negative) Urine RBC 33 H (0-5) /hpf Urine WBC 11 H (0-5) /hpf Ur Squamous Epith Cells 3 (0-4) /hpf Urine Bacteria Occasional H (None) /hpf Urine Mucus Many H (None) /hpf - Radiology Data Radiology results: report reviewed Ultrasound of a few shows viable IUP with heart rate of 165 beats were minute. Disposition Clinical Impression: Gastroenteritis, Bacteriuria in Disposition: HOME SELF-CARE Condition: Good Instructions (If sedation given, give patient instructions): Acute Nausea and Vomiting (ED) Additional Instructions: Patient is to rest, have clear liquid diet. Take antibiotic as prescribed. Antibiotics at her pharmacy on file. Follow-up with your PCP and [facility]. Prescriptions: Cephalexin [Keflex] 500 mg PO Q6HR 3 Days #12 cap Metoclopramide [Reglan] 10 mg PO ACHS #12 tab Is patient prescribed a controlled substance at d/c from ED?: No Referrals: Campbell Hernandez MD [Primary Care Provider] - 1-2 days Time of Disposition: 17:22
[2018-08-20 16:08] LABS: Basophils % (A) 0 %; Eosinophils # (A) 0.2 k/uL (0-0.7); Eosinophils % (A) 2 %; HCT 38.7 % (34.0-46.0); HGB 12.7 gm/dL (11.4-16.0); Lymphocytes % (A) 17 %; MCH 27.7 pg (25.0-35.0); MCHC 32.8 g/dL (31.0-37.0); MCV 84.4 fL (80.0-100.0); Mean Platelet Volume 6.5; Monocytes # (A) 0.6 k/uL (0-1.0); Monocytes % (A) 5 %; Neutrophils % (A) 75 %; Platelet Count 266 k/uL (150-450); RBC 4.58 m/uL (3.80-5.40); RDW 14.7 % (11.5-15.5)
[2018-08-20 16:18] LABS: ALT 40 U/L (9-52); AST 19 U/L (14-36); African American GFR (CKD) >90 (>60 ml/min/1.73 sqM); Albumin 3.5 g/dL (3.5-5.0); Alkaline Phosphatase 97 U/L (38-126); Anion Gap 5 mmol/L; Blood Urea Nitrogen 6 mg/dL (7-17); Calcium 8.7 mg/dL (8.4-10.2); Carbon Dioxide 26 mmol/L (22-30); Chloride 106 mmol/L (98-107); Glucose 93 mg/dL (74-99); Potassium 4.3 mmol/L (3.5-5.1); Sodium 137 mmol/L (137-145); Total Bilirubin 0.2 mg/dL (0.2-1.3); Total Protein 6.6 g/dL (6.3-8.2)
[2018-08-20 16:21] LABS: Appearance,Urine Cloudy (Clear); Bacteria,Urine Occasional /hpf; Bilirubin,Urine Negative (Negative); Blood,Urine Negative (Negative); Color,Urine Yellow; Glucose,Urine (UA) Negative (Negative); Ketones,Urine Negative (Negative); Leukocyte Esterase,Urine Trace (Negative); Mucus,Urine Many /hpf; Nitrite,Urine Negative (Negative); Protein,Urine Trace (Negative); RBC,Urine 33 /hpf (0-5); Specific Gravity,Urine 1.025 (1.001-1.035); Squamous Epithelial Cell,Urine 3 /hpf (0-4); WBC,Urine 11 /hpf (0-5)
--- NOTE | 2018-08-20 16:33 | US ---
EXAMINATION TYPE: US OB limited DATE OF EXAM: 08/20/2018 COMPARISON: NONE CLINICAL HISTORY: Pain. FHT's only per order. 10 weeks . Hx ultrasound at [facility] per patient. EXAM PERFORMED: Transabdominal (TA) GESTATIONAL AGE / DATING Physician Established: (10 weeks/1 days) EDC: 03/17/2019 No growth performed on today?s study per ordering physician SURVEY HEART RATE: 165 bpm RHYTHM: Normal IMPRESSION: Single live intrauterine gestation is confirmed with satisfactory heart rate on 2 images saved.
[2018-08-20 18:15] VITALS: BP 117/77; PULSE 100; TEMP 98
== END 2018-08-20 19:01 | disposition home or self-care (01) ==
LOC: EC 14:53
DX: O99.611 Diseases of the digestive system complicating pregnancy, first trimester (principal); O99.89 Other specified diseases and conditions complicating pregnancy, childbirth and the puerperium; O99.331 Smoking (tobacco) complicating pregnancy, first trimester; K52.9 Noninfective gastroenteritis and colitis, unspecified; R82.71 Bacteriuria; F17.200 Nicotine dependence, unspecified, uncomplicated; Z3A.10 10 weeks gestation of pregnancy; Z88.8 Allergy status to other drugs, medicaments and biological substances
CPT/HCPCS: 36415; 80053; 85025; 81001; 76815; 99284; 96374; 96375; 96361 ×2; J1200; J2765

== ENCOUNTER 2018-09-02 15:10 | Inpatient (IN) | payer OTHER ==
[2018-09-02 17:03] LABS: Basophils % (A) 0 %; Eosinophils # (A) 0.1 k/uL (0-0.7); Eosinophils % (A) 1 %; HCT 39.4 % (34.0-46.0); HGB 13.3 gm/dL (11.4-16.0); Lymphocytes # (A) 2.1 k/uL (1.0-4.8); Lymphocytes % (A) 18 %; MCH 28.1 pg (25.0-35.0); MCHC 33.6 g/dL (31.0-37.0); MCV 83.7 fL (80.0-100.0); Mean Platelet Volume 7.2; Monocytes # (A) 0.5 k/uL (0-1.0); Monocytes % (A) 4 %; Neutrophils # (A) 8.9 k/uL (1.3-7.7); Neutrophils % (A) 76 %; Platelet Count 281 k/uL (150-450); RBC 4.71 m/uL (3.80-5.40); WBC 11.8 k/uL (3.8-10.6)
[2018-09-02 17:12] LABS: Amorphous Sediment,Urine Rare /hpf; Appearance,Urine Turbid (Clear); Bacteria,Urine Many /hpf; Bilirubin,Urine Negative (Negative); Blood,Urine Trace (Negative); Color,Urine Yellow; Glucose,Urine (UA) Negative (Negative); Ketones,Urine 1+ (Negative); Leukocyte Esterase,Urine Large (Negative); Mucus,Urine Many /hpf; Nitrite,Urine Positive (Negative); Protein,Urine 1+ (Negative); RBC,Urine 24 /hpf (0-5); Specific Gravity,Urine 1.015 (1.001-1.035); Squamous Epithelial Cell,Urine 5 /hpf (0-4); Urobilinogen,Urine <2.0 mg/dL (<2.0)
[2018-09-02 17:16] LABS: ALT 41 U/L (9-52); AST 31 U/L (14-36); African American GFR (CKD) >90 (>60 ml/min/1.73 sqM); Albumin 3.8 g/dL (3.5-5.0); Alkaline Phosphatase 85 U/L (38-126); Amylase 41 U/L (30-110); Anion Gap 8 mmol/L; Blood Urea Nitrogen 3 mg/dL (7-17); Calcium 8.9 mg/dL (8.4-10.2); Carbon Dioxide 22 mmol/L (22-30); Chloride 107 mmol/L (98-107); Glucose 78 mg/dL (74-99); Lipase 26 U/L (23-300); Potassium 4.2 mmol/L (3.5-5.1); Sodium 137 mmol/L (137-145); Total Bilirubin 0.3 mg/dL (0.2-1.3); Total Protein 6.9 g/dL (6.3-8.2)
[2018-09-02] MEDS ORDERED: ONDANSETRON 4 MG/2 ML VIAL IVP STA (17:38)
[2018-09-02] MEDS ORDERED: SODIUM CHLORIDE 0.9% 1,000 ML IV ONE (17:38)
[2018-09-02] MEDS ORDERED: ACETAMINOPHEN TAB 325 MG TAB PO STA (17:38)
[2018-09-02] MEDS ORDERED: cefTRIAXone IN SWFI 1,000 MG/10 ML SYRINGE IVP STA (17:42)
--- NOTE | 2018-09-02 18:49 | US ---
EXAMINATION TYPE: US kidneys/renal and bladder DATE OF EXAM: 09/02/2018 COMPARISON: US 02/13/2014 CLINICAL HISTORY: 33-year-old female Pain. Patient is . Flank pain TECHNIQUE: Multiple sonographic images of the kidneys and bladder are obtained. FINDINGS: EXAM MEASUREMENTS: Right Kidney: 11.1 x 4.8 x 5.1 cm Left Kidney: 12.8 x 6.3 x 4.3 cm Right Kidney: No hydronephrosis. Left Kidney: No evidence of hydronephrosis. Bladder: wnl Bilateral Jets seen: Yes IMPRESSION: No hydronephrosis seen. Both ureteral jets are identified.
[2018-09-02] MEDS ORDERED: NALOXONE 0.4 MG/ML 1 ML VIAL IV PRN (20:37)
--- NOTE | 2018-09-02 20:37 | ED ---
Female Urogenital HPI - General Chief complaint: Urogenital Stated complaint: Kidney infection Time Seen by Provider: 09/02/18 17:12 Source: patient Mode of arrival: ambulatory Limitations: no limitations - History of Present Illness Initial comments: The patient is a 33-year-old female who presents emergency department with complaint of bilateral flank pain. Patient reports that she was diagnosed with urinary tract infection earlier this week. She's been unable to obtain her prescription for an antibiotic she was given at that time as she is homeless and has lack of funds. She is currently 13 weeks . She is . States she has not established care for this yet. She will be seeing Dr. Garcia on September 04. She was seen earlier this month in the ED and had a formal ultrasound which demonstrated an intrauterine . She denies any abnormal vaginal bleeding or discharge. She denies any pelvic cramping. Admits to burning and frequency with urination. Denies any changes in her bowel movements including diarrhea, constipation, melanotic stools or hematochezia. She denies any chest pain or shortness breath. Does admit to nausea with vomiting. Does admit to chills however has not recorded a fever. No abdominal trauma. There are no other alleviating, precipitating or modifying factors - Related Data Home Medications Medication Instructions Recorded Confirmed No Known Home Medications 08/28/18 09/02/18 Allergies Allergy/AdvReac Type Severity Reaction Status Date / Time phenazopyridine HCl Allergy Anaphylaxis Verified 09/02/18 18:04 [From Pyridium] Review of Systems ROS Statement: Those systems with pertinent positive or pertinent negative responses have been documented in the HPI. ROS Other: All systems not noted in ROS Statement are negative. Past Medical History Past Medical History: No Reported History History of Any Multi-Drug Resistant Organisms: None Reported, MRSA Date of last positivie culture/infection: 05/2013 MDRO Source:: buttocks Past Surgical History: No Surgical Hx Reported Past Psychological History: Anxiety, Bipolar, Depression Smoking Status: Current every day smoker Past Alcohol Use History: None Reported Past Drug Use History: None Reported General Exam Limitations: no limitations General appearance: alert, in no apparent distress Head exam: Present: atraumatic, normocephalic, normal inspection Eye exam: Present: normal appearance, PERRL, EOMI. Absent: scleral icterus, conjunctival injection, periorbital swelling ENT exam: Present: normal exam, mucous membranes moist Neck exam: Present: normal inspection. Absent: tenderness, meningismus, lymphadenopathy Respiratory exam: Present: normal lung sounds bilaterally. Absent: respiratory distress, wheezes, rales, rhonchi, stridor Cardiovascular Exam: Present: regular rate, normal rhythm, normal heart sounds. Absent: systolic murmur, diastolic murmur, rubs, gallop, clicks GI/Abdominal exam: Present: soft, normal bowel sounds, other (obese). Absent: distended, tenderness, guarding, rebound, rigid Extremities exam: Present: normal inspection, full ROM, normal capillary refill. Absent: tenderness, pedal edema, joint swelling, calf tenderness Back exam: Present: normal inspection Neurological exam: Present: alert, oriented X3, CN II-XII intact Psychiatric exam: Present: normal affect, normal mood Skin exam: Present: warm, dry, intact, normal color. Absent: rash Course Vital Signs 09/02/18 09/02/18 15:33 21:46 Temperature 98.3 F 98.2 F Pulse Rate 95 80 Respiratory 18 18 Rate Blood Pressure 142/76 140/72 O2 Sat by Pulse 99 99 Oximetry Procedures - Procedures Initial comment: Bedside obstetrical us demonstrated a live IUP with positive heart tones of 133 bpm and positive movement. Medical Decision Making - Medical Decision Making The patient was placed into room 22. IV access is established. The patient is given a liter bolus of 0.9% normal saline. Laboratory studies were conducted to include a lactic acid and blood cultures. I reviewed the patient's previous records. She is given 1 gram of Rocephin. The patient went for an ultrasound of her kidneys which demonstrates no hydronephrosis. I discussed results with the patient. As the patient is and has clinical pyelonephritis I did recommend admission to the hospital for which the patient did agree. I did call discuss case with Dr. Hernandez. He did accept admission of the patient. He would like Dr. Garcia from OB and Heidi Broussard from ID placed on consult. I did p erform a bedside ultrasound of the patient's pelvis which demonstrated an intrauterine . There is positive movement and a heart rate noted to be 133. Ultrasound films are placed on the chart. The patient is reevaluated and has had improvement in her pain and nausea. The patient re mained in stable condition and was transported to floor - Differential Diagnosis pyelonephritis, first trimester , dehydration - Lab Data Result diagrams: 09/02/18 15:52 09/02/18 15:52 Lab Results 09/02/18 09/02/18 09/02/18 Range/Units 15:52 15:52 15:52 WBC 11.8 H (3.8-10.6) k/uL RBC 4.71 (3.80-5.40) m/uL Hgb 13.3 (11.4-16.0) gm/dL Hct 39.4 (34.0-46.0) % MCV 83.7 (80.0-100.0) fL MCH 28.1 (25.0-35.0) pg MCHC 33.6 (31.0-37.0) g/dL RDW 16.0 H (11.5-15.5) % Plt Count 281 (150-450) k/uL Neutrophils % 76 % Lymphocytes % 18 % Monocytes % 4 % Eosinophils % 1 % Basophils % 0 % Neutrophils # 8.9 H (1.3-7.7) k/uL Lymphocytes # 2.1 (1.0-4.8) k/uL Monocytes # 0.5 (0-1.0) k/uL Eosinophils # 0.1 (0-0.7) k/uL Basophils # 0.0 (0-0.2) k/uL Sodium 137 (137-145) mmol/L Potassium 4.2 (3.5-5.1) mmol/L Chloride 107 (98-107) mmol/L Carbon Dioxide 22 (22-30) mmol/L Anion Gap 8 mmol/L BUN 3 L (7-17) mg/dL Creatinine 0.49 L (0.52-1.04) mg/dL Est GFR (CKD-EPI)AfAm >90 (>60 ml/min/1.73 sqM) Est GFR (CKD-EPI)NonAf >90 (>60 ml/min/1.73 sqM) Glucose 78 (74-99) mg/dL Plasma Lactic Acid [place] (0.7-2.0) mmol/L Calcium 8.9 (8.4-10.2) mg/dL Total Bilirubin 0.3 (0.2-1.3) mg/dL AST 31 (14-36) U/L ALT 41 (9-52) U/L Alkaline Phosphatase 85 (38-126) U/L Total Protein 6.9 (6.3-8.2) g/dL Albumin 3.8 (3.5-5.0) g/dL Amylase 41 (30-110) U/L Lipase 26 (23-300) U/L Urine Color Yellow Urine Appearance Turbid H (Clear) Urine pH 7.0 (5.0-8.0) Ur Specific [place] 1.015 (1.001-1.035) Urine Protein 1+ H (Negative) Urine Glucose (UA) Negative (Negative) Urine Ketones 1+ H (Negative) Urine Blood Trace H (Negative) Urine Nitrite Positive H (Negative) Urine Bilirubin Negative (Negative) Urine Urobilinogen <2.0 (<2.0) mg/dL Ur Leukocyte Esterase Large H (Negative) Urine RBC 24 H (0-5) /hpf Urine WBC >182 H (0-5) /hpf Ur Squamous Epith Cells 5 H (0-4) /hpf Amorphous Sediment Rare H (None) /hpf Urine Bacteria Many H (None) /hpf Urine Mucus Many H (None) /hpf 09/02/18 Range/Units 18:55 WBC (3.8-10.6) k/uL RBC (3.80-5.40) m/uL Hgb (11.4-16.0) gm/dL Hct (34.0-46.0) % MCV (80.0-100.0) fL MCH (25.0-35.0) pg MCHC (31.0-37.0) g/dL RDW (11.5-15.5) % Plt Count (150-450) k/uL Neutrophils % % Lymphocytes % % Monocytes % % Eosinophils % % Basophils % % Neutrophils # (1.3-7.7) k/uL Lymphocytes # (1.0-4.8) k/uL Monocytes # (0-1.0) k/uL Eosinophils # (0-0.7) k/uL Basophils # (0-0.2) k/uL Sodium (137-145) mmol/L Potassium (3.5-5.1) mmol/L Chloride (98-107) mmol/L Carbon Dioxide (22-30) mmol/L Anion Gap mmol/L BUN (7-17) mg/dL Creatinine (0.52-1.04) mg/dL Est GFR (CKD-EPI)AfAm (>60 ml/min/1.73 sqM) Est GFR (CKD-EPI)NonAf (>60 ml/min/1.73 sqM) Glucose (74-99) mg/dL Plasma Lactic Acid [place] 1.0 (0.7-2.0) mmol/L Calcium (8.4-10.2) mg/dL Total Bilirubin (0.2-1.3) mg/dL AST (14-36) U/L ALT (9-52) U/L Alkaline Phosphatase (38-126) U/L Total Protein (6.3-8.2) g/dL Albumin (3.5-5.0) g/dL Amylase (30-110) U/L Lipase (23-300) U/L Urine Color Urine Appearance (Clear) Urine pH (5.0-8.0) Ur Specific [place] (1.001-1.035) Urine Protein (Negative) Urine Glucose (UA) (Negative) Urine Ketones (Negative) Urine Blood (Negative) Urine Nitrite (Negative) Urine Bilirubin (Negative) Urine Urobilinogen (<2.0) mg/dL Ur Leukocyte Esterase (Negative) Urine RBC (0-5) /hpf Urine WBC (0-5) /hpf Ur Squamous Epith Cells (0-4) /hpf Amorphous Sediment (None) /hpf Urine Bacteria (None) /hpf Urine Mucus (None) /hpf Disposition Clinical Impression: Urinary tract infection, Pyelonephritis affecting , First trimester Disposition: ADMITTED IP TO THIS [facility] Condition: Stable Is patient prescribed a controlled substance at d/c from ED?: No Decision to Admit Reason: Admit from EC Decision Date: 09/02/18 Decision Time: 20:36
[2018-09-02] MEDS ORDERED: METOCLOPRAMIDE 5 MG/ML 2 ML VIAL IVP PRN (20:55)
[2018-09-02] MEDS: SODIUM CHLORIDE 0.9% 1,000 ML IV SCH (21:46)
--- NOTE | 2018-09-02 23:33 | P.HPOB ---
History of Present Illness H&P Date: 09/02/18 Chief Complaint: Intrauterine with pyelonephritis Angelique is a 33-year-old female who is in her first trimester verified by ultrasound with viability today through our ultrasound department. She had an appointment to see me on September 04 for new OB. Her last Brixey was, complicated by cholestasis and will need to be watched very carefully this , however that has limited to do with her current condition. She relates that few days ago she was at [facility] and they diagnosed a bladder infection but she did not have money for insurance to pay for the medication and so she did not get treated. Tonight she is admitted for pyelonephritis. She is on Rocephin as her IV antibiotic consideration for gentamicin may need to be made as well. Her vital signs are currently stable. She is afebrile. White count was only 11.5 and sometimes that can be elevated even an early gestation. On physical exam again vital signs are stable and afebrile. Pelvic exam is not been done as there is limited benefit. Please see medical management for other organ systems. I have added a vitamin to her regimen but otherwise would not make any significant changes to current treatment plan. Assessment intrauterine first trimester with positive Fridays Plan IV antibiotics and your medical management. Agree with infectious disease consultation particularly in the face of some of that is currently homeless and has already demonstrated that it may be difficult for her to follow treatment plans due to her current situation. Past Medical History Past Medical History: No Reported History History of Any Multi-Drug Resistant Organisms: None Reported, MRSA Date of last positivie culture/infection: 05/2013 MDRO Source:: buttocks Past Surgical History: No Surgical Hx Reported Past Psychological History: Anxiety, Bipolar, Depression Smoking Status: Current every day smoker Past Alcohol Use History: None Reported Past Drug Use History: None Reported Medications and Allergies Home Medications Medication Instructions Recorded Confirmed Type No Known Home Medications 08/28/18 09/02/18 History Allergies Allergy/AdvReac Type Severity Reaction Status Date / Time phenazopyridine HCl Allergy Anaphylaxis Verified 09/02/18 18:04 [From Pyridium] Exam Osteopathic Statement: *. No significant issues noted on an osteopathic structural exam other than those noted in the History and Physical/Consult. Vital Signs Temp Pulse Pulse Resp BP BP Pulse Ox 09/02/18 22:18 98.5 F 81 16 100/49 99 09/02/18 22:12 18 09/02/18 21:46 98.2 F 80 18 140/72 99 09/02/18 15:33 98.3 F 95 18 142/76 99 Intake and Output 09/02/18 09/02/18 09/03/18 14:59 22:59 06:59 Intake Total 200 Balance 200 Intake: Intake, IV Titration 200 Amount Sodium Chloride 0.9% 1, 200 000 ml @ 100 mls/hr IV . Q10H [facility] Rx#:[id number] Other: Voiding Method Toilet Weight 104.326 kg Results Result Diagrams: 09/02/18 15:52 09/02/18 15:52 Abnormal Lab Results - Last 24 Hours (Table) 09/02/18 09/02/18 09/02/18 Range/Units 15:52 15:52 15:52 WBC 11.8 H (3.8-10.6) k/uL RDW 16.0 H (11.5-15.5) % Neutrophils # 8.9 H (1.3-7.7) k/uL BUN 3 L (7-17) mg/dL Creatinine 0.49 L (0.52-1.04) mg/dL Urine Appearance Turbid H (Clear) Urine Protein 1+ H (Negative) Urine Ketones 1+ H (Negative) Urine Blood Trace H (Negative) Urine Nitrite Positive H (Negative) Ur Leukocyte Esterase Large H (Negative) Urine RBC 24 H (0-5) /hpf Urine WBC >182 H (0-5) /hpf Ur Squamous Epith Cells 5 H (0-4) /hpf Amorphous Sediment Rare H (None) /hpf Urine Bacteria Many H (None) /hpf Urine Mucus Many H (None) /hpf Microbiology - Last 24 Hours (Table) 09/02/18 15:52 Urine Culture - Preliminary Urine,Voided
[2018-09-03] MEDS: PRENATAL VIT-IRON-FOLIC ACID 1 EACH CAP PO SCH (07:15)
[2018-09-03] MEDS: SODIUM CHLORIDE 0.9% 1,000 ML IV SCH ×2 (07:21→16:08)
[2018-09-03] MEDS ORDERED: cefTRIAXone IN SWFI 1,000 MG/10 ML SYRINGE IVP SCH (09:00)
[2018-09-03 09:27] LABS: Basophils % (A) 0 %; Eosinophils # (A) 0.2 k/uL (0-0.7); Eosinophils % (A) 2 %; HCT 36.1 % (34.0-46.0); HGB 11.6 gm/dL (11.4-16.0); Lymphocytes # (A) 1.9 k/uL (1.0-4.8); Lymphocytes % (A) 25 %; MCH 27.7 pg (25.0-35.0); MCHC 32.3 g/dL (31.0-37.0); MCV 85.7 fL (80.0-100.0); Mean Platelet Volume 6.8; Monocytes # (A) 0.4 k/uL (0-1.0); Monocytes % (A) 5 %; Neutrophils % (A) 66 %; Platelet Count 224 k/uL (150-450); RBC 4.21 m/uL (3.80-5.40); WBC 7.5 k/uL (3.8-10.6)
[2018-09-03 09:44] LABS: African American GFR (CKD) >90 (>60 ml/min/1.73 sqM); Anion Gap 7 mmol/L; Blood Urea Nitrogen 6 mg/dL (7-17); Calcium 8.3 mg/dL (8.4-10.2); Carbon Dioxide 22 mmol/L (22-30); Chloride 108 mmol/L (98-107); Glucose 112 mg/dL (74-99); Sodium 137 mmol/L (137-145)
--- NOTE | 2018-09-03 13:45 | PN ---
PROGRESS NOTE CHIEF COMPLAINT: Pyelonephritis. HISTORY OF PRESENT ILLNESS: This lady is still complaining of quite a bit of discomfort in the back area. She has had no nausea. She has not been seen by Infectious Disease or OB yet. PHYSICAL EXAM: Chest is clear. Cardiac exam is normal. She is a little tender over the bladder now. There are no masses. 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 IMPRESSION: 1. Pyelonephritis. 2. Intrauterine . PLAN: 1. Continue with IV fluids and antibiotics. 2. Await cultures. 3. Consult with [facility]. 4. Infectious Disease consult-still pending. MMODL / IJN: [id number] /
--- NOTE | 2018-09-03 13:45 | HP ---
HISTORY AND PHYSICAL CHIEF COMPLAINT: Bilateral flank pain. HISTORY OF PRESENT ILLNESS: This is the first known admission for this 33-year-old, G6, P4, A1 female. Last normal period was about 12 weeks ago. She has not seen an OB. She came to emergency room with flank pain and was found to have pyelonephritis. She is admitted. She has had no nausea, vomiting, hematuria, etc. REVIEW OF SYSTEMS: She has had no headaches, neurologic problems, change in vision or hearing, cough, hemoptysis, sputum production, hypertension, murmurs, rheumatic fever, orthopnea, PND, abdominal pain, nausea, vomiting, hematemesis, melena, hematochezia, jaundice, hematuria, CKD, etc. She has had prior urinary tract infections and she states she has had a history of stones. She is not diabetic. Past medical history, family history and personal and social histories are otherwise unremarkable and noncontributory. She cannot take PYRIDIUM. She has not been taking any medicines and she has had no surgery. She smokes half pack of cigarettes a day. PHYSICAL EXAM: Blood pressure 104/72, pulse 74, respirations 16, temperature of 100.5. In general, she appeared to be in no acute distress. Skin is hot and dry. Head, ears, eyes, nose, mouth, and throat were normal. Neck veins not distended. Thyroid is not enlarged. Chest is clear. Cardiac exam is normal. Abdomen is soft and nontender. She is tender over the flanks. Extremities: Normal. Neurologically. She is intact. IMPRESSION: 1. Pyelonephritis. 2. Intrauterine . PLAN: 1. Bed rest. 2. IV fluids. 3. IV antibiotics. 4. Consult with Infectious Disease and OB. MMODL / IJN: [id number] /
[2018-09-03] MEDS: ACETAMINOPHEN TAB 325 MG TAB PO PRN (23:27)
--- NOTE | 2018-09-04 00:09 | P.CONS ---
History of Present Illness - Reason for Consult Consult date: 09/03/18 Pyelonephritis and Requesting physician: Campbell Hernandez - Chief Complaint Bilateral flank pain and urinary symptoms x 1 week - History of Present Illness Patient is a 33-year-old female who is currently 13 weeks who has been recently diagnosed in outpatient setting with urinary tract infection however the patient was unable to fill her prescription patient now presenting to the ER at [facility] which she complains of bilateral flank pain most of the right side more of a sharp pain 6-7 out of 10 and no relation services in nausea but no vomiting today complaining of some burning of urine but no suprapubic pain. The symptom the patient has been evaluated the patient did have a significantly positive with elevated white count of 11.1 patient to be started on Rocephin infectious disease was consulted for further recommendation regarding antibiotic in view of the patient being 13 weeks 's Review of Systems Positive points has been mentioned in HPI rest of the systems negative Past Medical History Past Medical History: No Reported History History of Any Multi-Drug Resistant Organisms: None Reported, MRSA Year Discovered:: 05/2013 MDRO Source:: buttocks Past Surgical History: No Surgical Hx Reported Past Psychological History: Anxiety, Bipolar, Depression Smoking Status: Current every day smoker Past Alcohol Use History: None Reported Past Drug Use History: None Reported Medications and Allergies Home Medications Medication Instructions Recorded Confirmed Type No Known Home Medications 08/28/18 09/02/18 History Allergies Allergy/AdvReac Type Severity Reaction Status Date / Time phenazopyridine HCl Allergy Anaphylaxis Verified 09/02/18 18:04 [From Pyridium] Physical Exam Vitals: Vital Signs Temp Pulse Pulse Resp BP BP Pulse Ox 09/03/18 15:00 98.5 F 85 16 109/71 98 09/03/18 07:00 98.3 F 75 16 105/68 98 09/03/18 01:10 99.3 F 83 18 110/66 99 09/02/18 22:18 98.5 F 81 16 100/49 99 09/02/18 22:12 18 09/02/18 21:46 98.2 F 80 18 140/72 99 Intake and Output 09/03/18 09/03/18 09/03/18 06:59 14:59 22:59 Intake Total 850 Balance 850 Intake: Intake, IV Titration 850 Amount Sodium Chloride 0.9% 1, 800 000 ml @ 100 mls/hr IV . Q10H [facility] Rx#:[id number] cefTRIAXone 1 gm In 50 Sodium Chloride 0.9% 50 ml @ 100 mls/hr IVPB DAILY [facility] Rx#:[id number] Other: Voiding Method Toilet Toilet # Voids 3 GENERAL DESCRIPTION: Middle-aged female lying in bed, no distress. No tachypnea or accessory muscle of respiration use. HEENT: Shows Pallor , no scleral icterus. Oral mucous membrane is dry. No pharyngeal erythema or thrush NECK: Trachea central, no thyromegaly. LUNGS: Unlabored breathing. Clear to auscultation anteriorly. No wheeze or crackle. HEART: S1, S2, regular rate and rhythm. No loud murmur ABDOMEN: Soft, no tenderness , guarding or rigidity, no organomegaly EXTREMITIES: No edema of feet. SKIN: No rash, no masses palpable. NEUROLOGICAL: The patient is awake, alert, oriented x3, mood and affect normal Results CBC & Chem 7: 09/03/18 07:25 09/03/18 07:25 Labs: Abnormal Lab Results - Last 24 Hours (Table) 09/03/18 Range/Units 07:25 Chloride 108 H (98-107) mmol/L BUN 6 L (7-17) mg/dL Glucose 112 H (74-99) mg/dL Calcium 8.3 L (8.4-10.2) mg/dL Microbiology - Last 24 Hours (Table) 09/02/18 15:52 Urine Culture - Preliminary Urine,Voided Assessment and Plan Assessment: 1-patient presented to the hospital with flank pain most of the right side with urinary burning nausea this patient who did not took any antibiotic in the outpatient setting for an episode of UTI now with worsening symptoms with concern for possible right-sided pyelonephritis could be a E. coli or related pathogen less likely suspicious for pseudomonas infection Plan: 1-Rocephin 1 g daily while waiting for the urine culture to be finalize 2-IV fluids we will follow up on clinical condition and cultures to further adjust medication if needed Thank you for this consultation will follow this patient along with you Time with Patient: Greater than 30
[2018-09-04] MEDS: SODIUM CHLORIDE 0.9% 1,000 ML IV SCH ×3 (04:09→23:49)
[2018-09-04] MEDS: PRENATAL VIT-IRON-FOLIC ACID 1 EACH CAP PO SCH (09:21)
--- NOTE | 2018-09-04 12:09 | PN ---
PROGRESS NOTE CHIEF COMPLAINT: Pyelonephritis. HISTORY OF PRESENT ILLNESS: This lady is doing a bit better. She is still having some flank pain. She has had no fever, chills, nausea, vomiting, etc. PHYSICAL EXAM: Chest is clear. The cardiac exam is normal and the abdomen is soft. She is still a bit tender over both flank areas. Extremities are normal. Neurologically she is intact. IMPRESSION: 1. Pyelonephritis. 2. Intrauterine . PLAN: Continue with IV fluids and antibiotics and await any further recommendations from OB or Infectious Disease. . MMODL / IJN: [id number] /
--- NOTE | 2018-09-04 20:57 | PN ---
PROGRESS NOTE DATE OF SERVICE: 09/04/2018. REASON FOR FOLLOWUP: Pyelonephritis. INTERVAL HISTORY: The patient is currently afebrile. Patient still complains of pain to the right flank area. No nausea, vomiting. No abdominal pain or any diarrhea. PHYSICAL EXAMINATION: Blood pressure is 121/70, pulse of 77, temperature 99.2, she is 96% on room air. General description is a middle aged female lying in bed in no distress. Respiratory system: Unlabored breathing. Clear to auscultation anteriorly. HEART S1, S2. Regular rate and rhythm. ABDOMEN: Soft, no tenderness. LABS: Hemoglobin is 11.6, white of 7.5, creatinine 0.56. Urine gram negative. DIAGNOSTIC IMPRESSION AND PLAN: Patient with gram-negative right-sided pyelonephritis in this patient who is currently 13 weeks . Patient currently on Rocephin to continue while waiting for the urine culture to finalize to determine discharge antibiotics. Continue supportive care. MMODL / IJN: [id number] /
[2018-09-05] MEDS: ACETAMINOPHEN TAB 325 MG TAB PO PRN (10:55)
[2018-09-05] MEDS: PRENATAL VIT-IRON-FOLIC ACID 1 EACH CAP PO SCH (10:58)
[2018-09-05] MEDS: SODIUM CHLORIDE 0.9% 1,000 ML IV SCH (10:59)
--- NOTE | 2018-09-05 12:24 | P.DS ---
Providers Date of admission: 09/05/18 06:59 Expected date of discharge: 09/05/18 Attending physician: Campbell Hernandez Consults: 09/02/18 20:51 Consult Physician Urgent Consulting Provider: Sumit Garcia Consult Reason/Comments: first trimester , acute pyelo Do you want consulting provider notified?: Yes 09/02/18 20:52 Consult Physician Urgent Consulting Provider: Tamie Larson Consult Reason/Comments: acute pyelo, first trimester Do you want consulting provider notified?: Yes Primary care physician: Campbell Hernandez Hospital Course: Discharge diagnosis - Right-sided polynephritis. Urine culture showing E. coli - Intrauterine first trimester Hospital course 33-year-old female with a history significant for intrauterine at 13 weeks comes to the ER with flank pain. She was diagnosed with polynephritis. She was started on Rocephin. Infectious disease an OB was consulted. She was continued on Rocephin. OB saw the patient and the following the patient as well. On 09/05/2018 Patient says that she still has pain in the right flank. She is applying heating pads. She is otherwise having no fever no chills, she doesn't complain of any burning in the urine which is that she's having difficulty passing urine. She does not complain of any pain in the belly, no nausea vomiting, or diarrhea constipation On exam, alert and oriented x3. HEENT: Conjunctivae normal. eyes normal. NECK: No JVD. No thyroid enlargement. No LNs CARDIOVASCULAR: S1-S2 positive RESPIRATION: Breath sounds diminished in the bases. No rhonchi or crackles. No bronchial breathing. ABDOMEN: Soft, nontender . No guarding. no masses palpable. No ascites, No hepatosplenomegaly.Bowel sounds heard. LEGS: No edema. no swelling NERVOUS SYSTEM: Cranial N 2-12 grossly normal. Moves all 4 limbs. No focal deficits. No sensory deficit. No signs of cerebellar dysfucntion. Skin: no ulcer no rash . Patient can probably be discharged when cleared by ID and OB Patient can follow-up with OB after discharge. Her urine culture sensitivity shows she is pansensitive. Patient Condition at Discharge: Stable Plan - Discharge Summary Discharge Rx Participant: Yes New Discharge Prescriptions: New Amoxicillin 500 mg PO Q8H 10 Days #30 capsule Discharge Medication List Amoxicillin 500 mg PO Q8H 10 Days #30 capsule 09/05/18 [Rx] Follow up Appointment(s)/Referral(s): Campbell Hernandez MD [Primary Care Provider] - 1-2 days Activity/Diet/Wound Care/Special Instructions: If you notice any increase in flank pain, any increased fever or chills, any nausea vomiting, any burning in the urine any difficulty passing urine more than normal, please call 911 and come to the ER or follow with the PCP Discharge Disposition: HOME SELF-CARE
--- NOTE | 2018-09-05 13:56 | PN ---
PROGRESS NOTE DATE OF SERVICE: 09/05/2018 REASON FOR FOLLOWUP VISIT: E coli pyelonephritis. INTERVAL HISTORY: The patient is currently afebrile. Patient is feeling better. Pain to the flank area has improved. Patient denies having any chest pain. No shortness of breath, no cough, no abdominal pain, no diarrhea. PHYSICAL EXAMINATION: Blood pressure 104/57 with a pulse of 71, temperature 97.9. She is 97% on room air. General description is a middle-aged female, up in the bed in no distress. RESPIRATORY SYSTEM: Unlabored breathing, clear to auscultation anteriorly. HEART: S1, S2. Regular rate and rhythm. ABDOMEN: Soft, no tenderness. LABS: No CBC was done today. Urine finalized with E coli that is sensitive pathogen. DIAGNOSTIC IMPRESSION AND PLAN: Patient with an Escherichia coli right-sided pyelonephritis. Seems to have shown clinical improvement. Escherichia coli is a sensitive pathogen. Plan will be to finish therapy with oral amoxicillin 5 mg t.i.d. about 10 days with close outpatient followup. MMODL / IJN: [id number] /
[2018-09-05 14:40] VITALS: TEMP 98.6
[2018-09-05 15:09] VITALS: BP 115/73; PULSE 80; RESP 19
== END 2018-09-05 16:35 | disposition home or self-care (01) | DRG 833 ==
LOC: EC 15:10 → 4SSUR 20:37 → OBSVTOIN 09-05 06:59
PROVIDERS: ADMIT Family Medicine; ATTEND Family Medicine
DX: O23.01 Infections of kidney in pregnancy, first trimester (principal); O99.89 Other specified diseases and conditions complicating pregnancy, childbirth and the puerperium; E86.0 Dehydration; B96.20 Unspecified Escherichia coli [E. coli] as the cause of diseases classified elsewhere; O99.331 Smoking (tobacco) complicating pregnancy, first trimester; F17.200 Nicotine dependence, unspecified, uncomplicated; O99.341 Other mental disorders complicating pregnancy, first trimester; F31.9 Bipolar disorder, unspecified; F41.9 Anxiety disorder, unspecified; Z3A.13 13 weeks gestation of pregnancy; Z59.0 Homelessness; Z88.8 Allergy status to other drugs, medicaments and biological substances; Z86.14 Personal history of Methicillin resistant Staphylococcus aureus infection
CPT/HCPCS: 36415; 76770; 80048; 80053; 81001; 82150; 83605; 83690; 85025; 87077; 87086; 87186; 96361; 96374; 96375; 99284

== ENCOUNTER 2018-11-07 10:04 | Emergency (ER) | payer OTHER ==
[2018-11-07 10:20] VITALS: BP 133/89; PULSE 94; RESP 18; TEMP 98.5
[2018-11-07] MEDS ORDERED: LIDOCAINE 1% INJ 10MG/ML (20 ML MDV) SQ ONE (10:56)
--- NOTE | 2018-11-07 11:35 | ED ---
ENT HPI - General Chief complaint: Dental/Oral Stated complaint: Tooth Pain Source: patient Mode of arrival: ambulatory Limitations: no limitations - History of Present Illness Initial comments: 33-year-old female presenting today for chief complaint of left upper dental pain. Patient states that she had lost a tooth quite some time ago and the report was exposed. Patient states she does not have much pain with this area unless it was super hot or cold foods. Patient states now even the air she presented is painful. Patient denies any facial swelling. Denies line below the tongue or swelling of the neck. Patient denies any rashes or compressive symptoms. Patient denies any nausea vomiting fever or flulike symptoms. Patient states she just no longer tolerate the pain. Patient states she attempted to call her dentist who was able to get her appointment within the next 7 days. Patient states she cannot take the pain and presented ER for evaluation. Patient is currently 21 weeks . Patient denies any recent antibiotic use. Remaining review of systems negative. - Related Data Previous Rx's Medication Instructions Recorded Amoxicillin 500 mg PO Q8H 10 Days #30 capsule 09/05/18 Penicillin V Potassium [Pen Vee K] 500 mg PO QID 7 Days #28 tablet 11/07/18 Allergies Allergy/AdvReac Type Severity Reaction Status Date / Time phenazopyridine HCl Allergy Anaphylaxis Verified 11/07/18 10:18 [From Pyridium] Review of Systems ROS Statement: Those systems with pertinent positive or pertinent negative responses have been documented in the HPI. ROS Other: All systems not noted in ROS Statement are negative. Past Medical History Past Medical History: No Reported History History of Any Multi-Drug Resistant Organisms: MRSA Date of last positivie culture/infection: 05/2013 MDRO Source:: buttocks Past Surgical History: No Surgical Hx Reported Past Psychological History: Anxiety, Bipolar, Depression Smoking Status: Current every day smoker Past Alcohol Use History: None Reported Past Drug Use History: None Reported General Exam - General Exam Comments Initial Comments: General: The patient is awake and alert, in no distress, and does not appear acutely ill. Eye: Pupils are equal, round and reactive to light, extra-ocular movements are intact. No nystagmus. There is normal conjunctiva bilaterally. No signs of icterus. Ears, nose, mouth and throat: There are moist mucous membranes and no oral lesions. No swelling to the tongue. No swelling below the angle of the mandible. No facial swelling. Patient has an exposed root at tooth number 10. No adjacent swelling. no abscess. pain to percussion. Neck: The neck is supple, there is no tenderness or JVD. Cardiovascular: There is a regular rate and rhythm. No murmur, rub or gallop is appreciated. Respiratory: Lungs are clear to auscultation, respirations are non-labored, breath sounds are equal. No wheezes, stridor, rales, or rhonchi. Musculoskeletal: Normal ROM, no tenderness. Strength 5/5. Sensation intact. Radial pulses equal bilaterally 2+. Neurological: A&O x 3. CN II-XII intact, There are no obvious motor or sensory deficits. Coordination appears grossly intact. Speech is normal. Skin: Skin is warm and dry and no rashes or lesions are noted. Psychiatric: Cooperative, appropriate mood & affect, normal judgment. Limitations: no limitations Course Vital Signs 11/07/18 10:18 Temperature 98.5 F Pulse Rate 94 Respiratory 18 Rate Blood Pressure 133/89 O2 Sat by Pulse 97 Oximetry Medical Decision Making - Medical Decision Making 33-year-old female presenting for dental pain. Patient has no evidence of abscess. No signs of systemic infection. No fevers or flu like symptoms. Patient has an exposed root. Patient was given a dental block using 1% lidocaine. Patient had a procedure well patient had symptomatically relief. Patient is to take Tylenol for pain at home every 4-6 hours. She is to follow- up with her dentist for extraction and root canal. Patient was given a prescription for Pen-Vee K. Return parameters were discussed and patient was discharged appearing well to discuss the case mentally provided Dr. Ferrara. Disposition Clinical Impression: Pain, dental Disposition: HOME SELF-CARE Condition: Good Instructions (If sedation given, give patient instructions): Dental Abscess (ED), Toothache (ED) Additional Instructions: Please use medication as discussed. Please follow-up with dentist within next week. Please return to emergency room if the symptoms increase or worsen or for any other concerns, fevers, rash, swelling below tongue, swelling of face, flu like symptoms. Prescriptions: Penicillin V Potassium [Pen Vee K] 500 mg PO QID 7 Days #28 tablet Is patient prescribed a controlled substance at d/c from ED?: No Referrals: Campbell Hernandez MD [Primary Care Provider] - 1-2 days Time of Disposition: 11:34
== END 2018-11-07 12:00 | disposition home or self-care (01) ==
LOC: EC 10:04
DX: O99.89 Other specified diseases and conditions complicating pregnancy, childbirth and the puerperium (principal); K08.89 Other specified disorders of teeth and supporting structures; O99.332 Smoking (tobacco) complicating pregnancy, second trimester; F17.200 Nicotine dependence, unspecified, uncomplicated; Z3A.21 21 weeks gestation of pregnancy; Z88.8 Allergy status to other drugs, medicaments and biological substances
CPT/HCPCS: 99282; 64400; J2001

== ENCOUNTER → 2018-12-18 | Outpatient (CLI) | payer OTHER ==
[2018-12-19 07:51] LABS: T4, Free (Free Thyroxine) 0.9 ng/dL (0.80-1.80)
== END | disposition home or self-care (01) ==
LOC: LABWHC1 15:36
PROVIDERS: ATTEND Obstetrics & Gynecology
DX: O36.19 Maternal care for other isoimmunization (principal); Z3A.00 Weeks of gestation of pregnancy not specified
CPT/HCPCS: 36415; 84439; 84443; 86850; 86870; 86880; 86886; 86900; 86901

== ENCOUNTER 2019-02-25 06:00 | Inpatient (IN) | payer OTHER ==
[2019-02-25] MEDS ORDERED: CARBOPROST TROMETHAMINE 250 MCG/ML 1 ML AMP IM PRN (07:01)
[2019-02-25] MEDS ORDERED: LIDOCAINE 0.5% (PF) 5 MG/ML (50 ML SDV) SQ PRN (07:01)
[2019-02-25] MEDS ORDERED: OXYTOCIN 10 UNIT/ML 1 ML VIAL IM PRN (07:01)
[2019-02-25] MEDS ORDERED: AMPICILLIN 2,000 MG in SODIUM CHLORIDE 0.9% 100 ML IVPB STA (07:01)
[2019-02-25] MEDS ORDERED: TERBUTALINE 1 MG/ML VIAL SQ PRN (07:01)
[2019-02-25] MEDS ORDERED: METHYLERGONOVINE 0.2 MG/ML 1 ML AMP IM PRN (07:01)
[2019-02-25] MEDS ORDERED: OXYTOCIN 30 UNITS/500 ML NS 30 UNIT in SALINE 1 500ML.BAG IV SCH (07:15)
[2019-02-25] MEDS: LACTATED RINGERS 1,000 ML IV SCH ×3 (07:27→23:24)
[2019-02-25 08:12] LABS: Basophils # (A) 0.1 k/uL (0-0.2); Basophils % (A) 1 %; Eosinophils # (A) 0.2 k/uL (0-0.7); Eosinophils % (A) 2 %; HCT 33.7 % (34.0-46.0); HGB 11.2 gm/dL (11.4-16.0); Lymphocytes # (A) 2.3 k/uL (1.0-4.8); Lymphocytes % (A) 19 %; MCH 28.3 pg (25.0-35.0); MCHC 33.3 g/dL (31.0-37.0); Mean Platelet Volume 7.5; Monocytes # (A) 0.9 k/uL (0-1.0); Monocytes % (A) 7 %; Neutrophils # (A) 8.5 k/uL (1.3-7.7); Neutrophils % (A) 70 %; Platelet Count 365 k/uL (150-450); RBC 3.97 m/uL (3.80-5.40); RDW 14.4 % (11.5-15.5); WBC 12.1 k/uL (3.8-10.6)
[2019-02-25] MEDS: AMPICILLIN 1,000 MG in SODIUM CHLORIDE 0.9% 50 ML IVPB SCH ×5 (10:40→23:52)
[2019-02-25] MEDS ORDERED: BUTORPHANOL 1 MG/ML 1 ML VIAL IV PRN (13:38)
[2019-02-26] MEDS ORDERED: SODIUM CHLORIDE 0.9% 100 ML BAG ONE (00:38)
[2019-02-26] MEDS ORDERED: fentaNYL (PF) 50 MCG/ML 5 ML AMP ONE (00:38)
[2019-02-26] MEDS ORDERED: ROPIVACAINE 5MG/ML 20ML VIAL ONE (00:38)
[2019-02-26] MEDS ORDERED: BENZOCAINE/MENTHOL SPRAY 1 GM/SPRAY AEROSOL TOPICAL PRN (03:27)
[2019-02-26] MEDS ORDERED: WITCH HAZEL 1 EACH MED..PAD TOPICAL PRN (03:27)
[2019-02-26] MEDS ORDERED: SIMETHICONE 80 MG CHEWABLE PO PRN (03:27)
[2019-02-26] MEDS ORDERED: HYDROCORTISONE 2.5% RECTAL CREAM 30 GM TUBE RECTAL PRN (03:27)
[2019-02-26] MEDS ORDERED: diphenhydrAMINE 50 MG CAP PO PRN (03:27)
[2019-02-26] MEDS ORDERED: diphenhydrAMINE 25 MG CAP PO PRN (03:27)
[2019-02-26] MEDS ORDERED: LANOLIN CREAM 5 GM TUBE TOPICAL PRN (03:27)
[2019-02-26] MEDS ORDERED: ZOLPIDEM 5 MG TAB PO PRN (03:27)
[2019-02-26] MEDS ORDERED: ACETAMINOPHEN TAB 325 MG TAB PO PRN (03:27)
[2019-02-26] MEDS ORDERED: diphenhydrAMINE 50 MG/ML 1 ML VIAL IVP PRN ×2 (03:27)
[2019-02-26] MEDS ORDERED: OXYTOCIN 20 UNITS/1000 ML NS 1,000 ML IV SCH (03:30)
--- NOTE | 2019-02-26 03:32 | P.HPOB ---
History of Present Illness H&P Date: 02/26/19 Chief Complaint: intrauterine Precis term:anti e positive Angelique is a 34-year-old female at 37 weeks gestation who arrives for induction of labor for a positive anti-E antibody has been monitored through the . She was seen by maternal medicine and their recommendation was at 37 weeks to deliver her due to anti-E positive with risk for stillbirth. She has had nonstress test and has been monitored closely throughout the and did see maternal medicine in the second trimester but after approximately 33 weeks was unable to continue to go for her visit so we managed the majority of her care from that point forward locally. She had nonstress tests and then biophysical profiles as needed. Groupie strep was also positive. She has B+ blood type Rh antibody was positive for anti-E. Rubella was immune, hepatitis B surface antigen/RPR/HIV were all negative. She is aware that the baby is somewhat early at 37 weeks but based on recommendation for premature maternal medicine and risks involved moving forward with induction is the more safe and pragmatic approach. She understands her is slight chance the baby's lungs may not be mature and the remaining stable hospital. She will be on IV antibiotics for GBS prophylaxis. Artificial rupture membranes was performed and clear fluid is noted. Pitocin augmentation of labor. Past Medical History Past Medical History: No Reported History History of Any Multi-Drug Resistant Organisms: MRSA Date of last positivie culture/infection: 05/2013 MDRO Source:: buttocks Past Surgical History: No Surgical Hx Reported Past Anesthesia/Blood Transfusion Reactions: No Reported Reaction Past Psychological History: Anxiety, Bipolar, Depression Smoking Status: Current every day smoker Past Alcohol Use History: None Reported Past Drug Use History: None Reported - Past Family History Mother Family Medical History: Diabetes Mellitus Medications and Allergies Allergies Allergy/AdvReac Type Severity Reaction Status Date / Time phenazopyridine HCl Allergy Anaphylaxis Verified 02/25/19 06:59 [From Pyridium] Exam Osteopathic Statement: *. No significant issues noted on an osteopathic structural exam other than those noted in the History and Physical/Consult. Vital Signs Temp Pulse Resp BP 02/25/19 07:28 97.1 F L 104 H 17 121/78 Intake and Output 02/25/19 02/25/19 02/26/19 14:59 22:59 06:59 Other: Weight 117.934 kg - OBG Physical Exam Breast: both: normal (no masses) Abdomen: bowel sounds normal, no diffuse tenderness, no bruit present, no guarding noted, no hepatomegaly, no splenomegaly, no mass Vulva: both: normal Vagina: normal moisture, no discharge Cervix: no lesion, no discharge Uterus: normal size, normal contour Adnexa: both: normal Anus/Rectum: normal perianal skin, no rectal mass, no hemorrhoids, heme negative Results Result Diagrams: 02/25/19 07:06 Abnormal Lab Results - Last 24 Hours (Table) 02/25/19 Range/Units 07:06 WBC 12.1 H (3.8-10.6) k/uL Hgb 11.2 L (11.4-16.0) gm/dL Hct 33.7 L (34.0-46.0) % Neutrophils # 8.5 H (1.3-7.7) k/uL
--- NOTE | 2019-02-26 03:33 | P.PROBDLV ---
Vaginal Delivery Note - . Vaginal Delivery Note: Angelique slowly progressed to complete and pushing with her not really getting into labor until probably almost 10 or 11 hours after induction process was initiated. However, once she was complete, she pushed and over an intact perineum delivered a viable female . Once baby was head was delivered anterior shoulder was easily delivered gentle downward upper traction from left occiput anterior position. Mouth nares were then bulb suctioned and baby was placed on mother's abdomen where the umbilical cord was allowed to pulsate for 30 seconds prior to clamping and cutting. Once this was accomplished nursery personnel was present and assumed care. Placenta was then delivered intact and Pitocin was added to the IV. scores and weight are pending. However, baby and mother appear stable following delivery.
--- NOTE | 2019-02-26 08:22 | P.PNOBGVD ---
Subjective - Subjective Principal diagnosis: day 0 Interval history: Angelique is involuting, voiding and she is tolerating her diet. She voices no plates. Vital signs are stable and afebrile. Heart regular, lungs clear, extremities without pain.we will plan for discharged home tomorrow with prescriptions already written and discharge instruction reviewed. Patient reports: Reports appetite normal, Reports voiding normally, Reports pain well controlled, Reports ambulating normally : doing well Objective - Latest Vital Signs Latest vital signs: Vital Signs Temp Pulse Resp BP 02/26/19 08:00 98.2 F 89 16 123/52 02/26/19 05:30 96.2 F L 99 16 123/56 02/26/19 05:00 96.8 F L 100 16 96/52 02/26/19 04:30 97.4 F L 93 16 102/54 02/26/19 04:15 98.6 F 16 02/26/19 04:00 98.1 F 110 H 16 105/53 02/26/19 03:45 97.7 F 86 16 106/52 02/26/19 03:30 97.7 F 92 16 104/51 Intake and Output 02/25/19 02/26/19 02/26/19 22:59 06:59 14:59 Other: # Voids 1 - Exam Lungs: bilateral: normal Chest: Normal S1, Normal S2 Extremities: Present: normal Abdomen: Present: normal appearance, soft Uterus: Present: normal, firm
[2019-02-26] MEDS: SENNOSIDES-DOCUSATE SODIUM 1 EACH TAB PO SCH ×2 (09:09→23:59)
[2019-02-26] MEDS: IBUPROFEN 600 MG TAB PO PRN ×3 (11:49→23:59)
[2019-02-27 07:00] LABS: Basophils % (A) 0 %; Eosinophils # (A) 0.3 k/uL (0-0.7); Eosinophils % (A) 2 %; HCT 31.3 % (34.0-46.0); HGB 10.1 gm/dL (11.4-16.0); Lymphocytes % (A) 28 %; MCH 27.5 pg (25.0-35.0); MCHC 32.1 g/dL (31.0-37.0); MCV 85.5 fL (80.0-100.0); Mean Platelet Volume 7.3; Monocytes # (A) 0.7 k/uL (0-1.0); Monocytes % (A) 7 %; Neutrophils # (A) 6.4 k/uL (1.3-7.7); Neutrophils % (A) 61 %; Platelet Count 308 k/uL (150-450); RBC 3.66 m/uL (3.80-5.40); RDW 14.4 % (11.5-15.5); WBC 10.6 k/uL (3.8-10.6)
[2019-02-27] MEDS: IBUPROFEN 600 MG TAB PO PRN (07:45)
[2019-02-27 10:30] VITALS: BP 138/66; PULSE 83; RESP 18; TEMP 97.9
[2019-02-27] MEDS: SENNOSIDES-DOCUSATE SODIUM 1 EACH TAB PO SCH (11:27)
--- NOTE | 2019-02-27 16:35 | P.DS ---
Providers Date of admission: 02/25/19 06:45 Expected date of discharge: 02/27/19 Attending physician: Sumit Garcia Primary care physician: Stated None Hospital Course: Angelique is doing very well post day 1. She was involuting, voiding and tolerating her diet. She voices no complaint. Vital signs were stable and afebrile. Heart regular, lungs clear, extremities without pain. Abdomen soft, bowel sounds were noted, uterus was firm below the umbilicus and lochia was reported to be light. Assessment post day 1. Plan discharged home follow me in 6 weeks. Prescription for Motrin was ordered to her pharmacy and all questions were answered for her prior to her discharge discharge instructions had been reviewed. Patient Condition at Discharge: Good Plan - Discharge Summary New Discharge Prescriptions: New Ibuprofen [Motrin] 600 mg PO Q6HR PRN #30 tab PRN Reason: Pain Discharge Medication List Ibuprofen [Motrin] 600 mg PO Q6HR PRN #30 tab 02/26/19 [Rx] Follow up Appointment(s)/Referral(s): Sumit Garcia DO [Doctor of Osteopathic Medicine] - 6 Weeks Activity/Diet/Wound Care/Special Instructions: no heavy lifting, limited stairs and driving, and pelvic rest. If any high temperatures, heavy bleeding, or severe pain call my office Discharge Disposition: HOME SELF-CARE
== END 2019-02-27 11:39 | disposition home or self-care (01) | DRG 806 ==
LOC: 4FBP 06:45
PROVIDERS: ADMIT Obstetrics & Gynecology; ATTEND Obstetrics & Gynecology
PROC: 10907ZC Drainage of Amniotic Fluid, Therapeutic from Products of Conception, Via Natural or Artificial Opening (ICD-10-PCS; 2019-02-25)
PROC: 3E033VJ Introduction of Other Hormone into Peripheral Vein, Percutaneous Approach (ICD-10-PCS; 2019-02-25)
PROC: 00HU33Z Insertion of Infusion Device into Spinal Canal, Percutaneous Approach (ICD-10-PCS; 2019-02-25)
PROC: 3E0R3NZ Introduction of Analgesics, Hypnotics, Sedatives into Spinal Canal, Percutaneous Approach (ICD-10-PCS; 2019-02-25)
PROC: 10E0XZZ Delivery of Products of Conception, External Approach (ICD-10-PCS; principal; 2019-02-26)
DX: O36.1930 Maternal care for other isoimmunization, third trimester, not applicable or unspecified (principal); Z16.24 Resistance to multiple antibiotics; Z37.0 Single live birth; F17.200 Nicotine dependence, unspecified, uncomplicated; O99.334 Smoking (tobacco) complicating childbirth; Z3A.37 37 weeks gestation of pregnancy; Z83.3 Family history of diabetes mellitus; Z88.8 Allergy status to other drugs, medicaments and biological substances; O99.824 Streptococcus B carrier state complicating childbirth
CPT/HCPCS: 85025; 86850; 86900; 86901

== ENCOUNTER 2019-05-08 07:50 | Emergency (ER) | payer OTHER ==
[2019-05-08 08:06] VITALS: BP 171/101; PULSE 88; RESP 16; TEMP 98.1
[2019-05-08] MEDS ORDERED: ACET/COD 300 MG/30 MG STARTER PACK 6 TAB BTL PO STA (08:06)
[2019-05-08] MEDS ORDERED: HYDROcodone/APAP 5-325MG 1 EACH TAB PO STA (08:06)
--- NOTE | 2019-05-08 08:07 | ED ---
ENT HPI - General Chief complaint: Dental/Oral Stated complaint: Dental Time Seen by Provider: 05/08/19 07:55 Source: patient, RN notes reviewed Mode of arrival: ambulatory Limitations: no limitations - History of Present Illness Initial comments: 34-year-old female presents emergency Department chief complaint of dental pain. Patient states she has very poor dentition. Patient had increasing pain left lower she is scheduled next week with [facility] for dental extraction. She is advised to come to the emergency Department for treatment. patient denies any difficulty swallowing. Patient denies any fevers or chills patient offers no other complaints. - Related Data Previous Rx's Medication Instructions Recorded Ibuprofen [Motrin] 600 mg PO Q6HR PRN #30 tab 02/26/19 Ibuprofen [Motrin] 600 mg PO Q8HR PRN #20 tab 05/08/19 Penicillin V Potassium [Pen Vee K] 500 mg PO QID #40 tablet 05/08/19 Allergies Allergy/AdvReac Type Severity Reaction Status Date / Time phenazopyridine HCl Allergy Anaphylaxis Verified 04/30/19 12:28 [From Pyridium] Review of Systems ROS Statement: Those systems with pertinent positive or pertinent negative responses have been documented in the HPI. ROS Other: All systems not noted in ROS Statement are negative. Past Medical History Past Medical History: Thyroid Disorder History of Any Multi-Drug Resistant Organisms: MRSA Date of last positivie culture/infection: 05/2013 MDRO Source:: buttocks Past Surgical History: No Surgical Hx Reported Past Anesthesia/Blood Transfusion Reactions: Previous Problems w/ Anesthesia Additional Past Anesthesia/Blood Transfusion Reaction / Comment(s): MOM- PONV Past Psychological History: Anxiety, Bipolar, Depression Smoking Status: Current every day smoker - Past Family History Mother Family Medical History: Diabetes Mellitus, Deep Vein Thrombosis (DVT) General Exam Limitations: no limitations General appearance: alert, in no apparent distress Head exam: Present: atraumatic, normocephalic, normal inspection Eye exam: Present: normal appearance, PERRL, EOMI. Absent: scleral icterus, conjunctival injection, periorbital swelling ENT exam: Present: mucous membranes moist, TM's normal bilaterally. Absent: normal exam, normal oropharynx (Edematous, multiple dental caries, dental fractures no drainable abscess no evidence of gingivitis, no trismus) Neck exam: Present: normal inspection. Absent: tenderness, meningismus, lymphadenopathy Respiratory exam: Present: normal lung sounds bilaterally. Absent: respiratory distress, wheezes, rales, rhonchi, stridor Cardiovascular Exam: Present: regular rate, normal rhythm, normal heart sounds. Absent: systolic murmur, diastolic murmur, rubs, gallop, clicks Course Vital Signs 05/08/19 07:51 Temperature 98.1 F Pulse Rate 88 Respiratory 16 Rate Blood Pressure 171/101 O2 Sat by Pulse 99 Oximetry Medical Decision Making - Medical Decision Making Patient will be treated for dental infection, toothache. Patient given Tylenol codeine starter pack, ibuprofen, penicillin. Return parameters were discussed. Disposition Clinical Impression: Toothache, Dental infection Disposition: HOME SELF-CARE Condition: Stable Instructions (If sedation given, give patient instructions): Toothache (ED) Additional Instructions: Please return to the Emergency Department if symptoms worsen or any other concerns. Prescriptions: Ibuprofen [Motrin] 600 mg PO Q8HR PRN #20 tab PRN Reason: Pain Penicillin V Potassium [Pen Vee K] 500 mg PO QID #40 tablet Is patient prescribed a controlled substance at d/c from ED?: No Referrals: Campbell Hernandez MD [Primary Care Provider] - 1-2 days Time of Disposition: 08:07
== END 2019-05-08 08:26 | disposition home or self-care (01) ==
LOC: EC 07:50
DX: K04.7 Periapical abscess without sinus (principal); F17.200 Nicotine dependence, unspecified, uncomplicated; Z88.8 Allergy status to other drugs, medicaments and biological substances; Z86.14 Personal history of Methicillin resistant Staphylococcus aureus infection
CPT/HCPCS: 99282

== ENCOUNTER 2019-11-03 22:00 | Emergency (ER) | payer OTHER ==
[2019-11-03 22:21] VITALS: BP 115/67; PULSE 108; RESP 18; TEMP 99.9
[2019-11-03] MEDS ORDERED: AMOXIC-POT CLAV 875MG STARTER PACK 2 TAB BTL PO STA (23:32)
[2019-11-03] MEDS ORDERED: DIPH,PERTUS(ACELL)TETVAC-LF 0.5 ML VIAL IM ONE (23:32)
[2019-11-03] MEDS ORDERED: ACET/COD 300 MG/30 MG STARTER PACK 6 TAB BTL PO STA (23:32)
--- NOTE | 2019-11-03 23:32 | ED ---
General Adult HPI - General Chief complaint: Animal Bite Stated complaint: Dog bite Time Seen by Provider: 11/03/19 22:56 Source: patient Mode of arrival: ambulatory Limitations: no limitations - History of Present Illness Initial comments: 34-year-old female presents to the emergency department today with complaints of dog bite sustained yesterday. Patient states she was bit on the left thigh and the area is very painful. She states that the pain increases with walking. Vaccine status of the dog is unknown. Patient states her last tetanus shot was m ore than 5 years ago. Patient denies any headache, neck pain, back pain, chest pain, shortness of breath, dizziness, weakness, abdominal pain, nausea, vomiting, or difficulties with bowel movements or urination. - Related Data Previous Rx's Medication Instructions Recorded Ibuprofen [Motrin] 600 mg PO Q6HR PRN #30 tab 02/26/19 Ibuprofen [Motrin] 600 mg PO Q8HR PRN #20 tab 05/08/19 Penicillin V Potassium [Pen Vee K] 500 mg PO QID #40 tablet 05/08/19 Amoxic-Pot Clav 875-125Mg 1 tab PO Q12HR #20 tablet 11/04/19 [Augmentin 875-125] Ibuprofen [Motrin] 600 mg PO Q8HR PRN #30 tab 11/04/19 Allergies Allergy/AdvReac Type Severity Reaction Status Date / Time phenazopyridine HCl Allergy Anaphylaxis Verified 11/03/19 22:21 [From Pyridium] Review of Systems ROS Statement: Those systems with pertinent positive or pertinent negative responses have been documented in the HPI. ROS Other: All systems not noted in ROS Statement are negative. Past Medical History Past Medical History: Thyroid Disorder History of Any Multi-Drug Resistant Organisms: MRSA Date of last positivie culture/infection: 05/2013 MDRO Source:: buttocks Past Surgical History: No Surgical Hx Reported Past Anesthesia/Blood Transfusion Reactions: Previous Problems w/ Anesthesia Additional Past Anesthesia/Blood Transfusion Reaction / Comment(s): MOM- PONV Past Psychological History: Anxiety, Bipolar, Depression Smoking Status: Current some day smoker Past Alcohol Use History: None Reported Past Drug Use History: None Reported - Past Family History Mother Family Medical History: Diabetes Mellitus, Deep Vein Thrombosis (DVT) General Exam Limitations: no limitations General appearance: alert, in no apparent distress, other (This is a well- developed, well-nourished adult female patient in no acute distress. Vital signs upon presentation are temperature 99.9F, pulse 108, respirations 18, blood pressure 115/67, pulse ox 99% on room air.) Respiratory exam: Present: normal lung sounds bilaterally. Absent: respiratory distress, wheezes, rales, rhonchi, stridor Cardiovascular Exam: Present: regular rate, normal rhythm, normal heart sounds. Absent: systolic murmur, diastolic murmur, rubs, gallop, clicks Extremities exam: Present: full ROM, tenderness (Left anterior thigh), normal capillary refill, other (There is large area of ecchymosis and soft tissue swelling noted to the left anterior thigh. There is presence of 4 puncture wounds. Skin is otherwise pink, warm, dry. Cap refills less than 3 seconds. Pedal and posttibial pulses are 2+ and equal bilaterally.). Absent: normal inspection, pedal edema, joint swelling, calf tenderness Neurological exam: Present: alert, oriented X3, CN II-XII intact Psychiatric exam: Present: normal affect, normal mood Skin exam: Present: warm, dry, intact, normal color. Absent: rash Course Vital Signs 11/03/19 22:17 Temperature 99.9 F H Pulse Rate 108 H Respiratory 18 Rate Blood Pressure 115/67 O2 Sat by Pulse 99 Oximetry Procedures - Laceration Laceration #1 Consent Obtained: verbal consent Indication: other (Puncture wounds) Site: lower extremity (Left anterior thigh) Pre-repair: irrigated extensively Patient Tolerated Procedure: well, no complications Medical Decision Making - Medical Decision Making 34-year-old female patient presented to the emergency department today for evaluation of left leg injury from a dog bite. Physical examination did reveal soft tissue swelling, ecchymosis to the left anterior thigh. There is presence of 4 puncture wounds. Wounds were irrigated here in the department. Wounds will be left to heal by secondary intention due to mechanism of injury and age. We'll start patient on Augmentin. She is given a tetanus vaccine as well as rabies vaccine. She'll be discharged to follow-up with her primary care physician for recheck in 1-2 days. She is given prescription for serial rabies vaccines. Return parameters discussed in detail. She verbalizes understanding and agrees with this plan Disposition Clinical Impression: Dog bite of left thigh Disposition: HOME SELF-CARE Condition: Good Instructions (If sedation given, give patient instructions): Animal Bite (ED), Contusion in Adults (ED) Additional Instructions: Keep wound clean and dry. Take antibiotics as directed. apply ice as tolerated. Follow-up with primary care provider in 1-2 days for recheck. Return to the emergency department if you develop fever, chills, increased redness, or drainage from the wound. Also, you will need to return to the Hospital for additional rabies vaccines. Prescriptions: Amoxic-Pot Clav 875-125Mg [Augmentin 875-125] 1 tab PO Q12HR #20 tablet Ibuprofen [Motrin] 600 mg PO Q8HR PRN #30 tab PRN Reason: Pain Is patient prescribed a controlled substance at d/c from ED?: No Referrals: Campbell Hernandez MD [Primary Care Provider] - 1-2 days Time of Disposition: 00:04
[2019-11-03] MEDS ORDERED: RABIES VACCINE (PCEC) 2.5 UNIT KIT IM ONE (23:35)
== END 2019-11-04 00:48 | disposition home or self-care (01) ==
LOC: EC 22:00
DX: S71.131A Puncture wound without foreign body, right thigh, initial encounter (principal); S70.12XA Contusion of left thigh, initial encounter; S71.152A Open bite, left thigh, initial encounter; Z23 Encounter for immunization; Z20.3 Contact with and (suspected) exposure to rabies; F17.200 Nicotine dependence, unspecified, uncomplicated; Z88.8 Allergy status to other drugs, medicaments and biological substances; Z86.14 Personal history of Methicillin resistant Staphylococcus aureus infection; W54.0XXA Bitten by dog, initial encounter; Y93.01 Activity, walking, marching and hiking; Y92.89 Other specified places as the place of occurrence of the external cause
CPT/HCPCS: 90471; 90675; 90715; 96372; 99283

== ENCOUNTER 2020-01-07 21:08 | Emergency (ER) | payer OTHER ==
[2020-01-07 21:23] VITALS: BP 143/82; PULSE 95; RESP 18; TEMP 98.8
--- NOTE | 2020-01-07 21:37 | ED ---
ENT HPI - General Chief complaint: Dental/Oral Stated complaint: Dental pain Time Seen by Provider: 01/07/20 21:24 Source: patient Mode of arrival: ambulatory Limitations: no limitations - History of Present Illness Initial comments: Patient is a 35-year-old female presenting to the emergency Department with complaints of lower left-sided dental pain that has been increasing over the past 3 days. Patient states she did have an appointment with her dentist yesterday but had to miss that because her car broke down and did not have a ride. I did call her in an antibiotic, Augmentin which she did start as well as ibuprofen but she states this is not helping with the pain. Patient states the pain this morning seemed to be moderately intolerable however throughout the evening has increased and is very severe. Patient denies any nausea, vomiting, fever, chills. She is no further complaints at this time. - Related Data Previous Rx's Medication Instructions Recorded Ibuprofen [Motrin] 600 mg PO Q6HR PRN #30 tab 02/26/19 Ibuprofen [Motrin] 600 mg PO Q8HR PRN #20 tab 05/08/19 Penicillin V Potassium [Pen Vee K] 500 mg PO QID #40 tablet 05/08/19 Amoxic-Pot Clav 875-125Mg 1 tab PO Q12HR #20 tablet 11/04/19 [Augmentin 875-125] Ibuprofen [Motrin] 600 mg PO Q8HR PRN #30 tab 11/04/19 Hydrocodone/Acetaminophen [[place] 1 tab PO Q6HR PRN #10 tab 01/07/20 5-325] Allergies Allergy/AdvReac Type Severity Reaction Status Date / Time phenazopyridine HCl Allergy Anaphylaxis Verified 01/07/20 21:20 [From Pyridium] Review of Systems ROS Statement: Those systems with pertinent positive or pertinent negative responses have been documented in the HPI. ROS Other: All systems not noted in ROS Statement are negative. Past Medical History Past Medical History: Thyroid Disorder History of Any Multi-Drug Resistant Organisms: MRSA Date of last positivie culture/infection: 05/2013 MDRO Source:: buttocks Past Surgical History: No Surgical Hx Reported Past Anesthesia/Blood Transfusion Reactions: Previous Problems w/ Anesthesia Additional Past Anesthesia/Blood Transfusion Reaction / Comment(s): MOM- PONV Past Psychological History: Anxiety, Bipolar, Depression Smoking Status: Current some day smoker Past Alcohol Use History: None Reported Past Drug Use History: None Reported - Past Family History Mother Family Medical History: Diabetes Mellitus, Deep Vein Thrombosis (DVT) General Exam - General Exam Comments Initial Comments: GENERAL: Patient is well-developed and well-nourished. Patient is nontoxic and in mild distress. HEAD: Atraumatic, normocephalic. EYES: Pupils equal round and reactive to light, extraocular movements intact, sclera anicteric, conjunctiva are normal. Eyelids were unremarkable. ENT: TMs normal, nares patent, oropharynx clear without exudates. Moist mucous membranes. Patient has pain along the left lower gumline, no obvious abscess. She has many decayed teeth, poor dental hygiene. NECK: Normal range of motion, supple without lymphadenopathy or JVD. LUNGS: Unlabored respirations. Breath sounds clear to auscultation bilaterally and equal. No wheezes rales or rhonchi. HEART: Regular rate and rhythm without murmurs, rubs or gallops. ABDOMEN: Soft, nontender, normoactive bowel sounds. No guarding, no rebound. No masses appreciated. : Deferred MUSCULOSKELETAL: Normal extremities with adequate strength and normal range of motion, no pitting or edema. No clubbing or cyanosis. NEUROLOGICAL: Patient is alert and oriented x 3. Motor and sensory are also intact. Cranial nerves II through XII grossly intact. Symmetrical smile. Normal speech, normal gait. PSYCH: Normal mood, normal affect. SKIN: Warm, Dry, normal turgor, no rashes or lesions noted. Limitations: no limitations Course Vital Signs 01/07/20 21:19 Temperature 98.8 F Pulse Rate 95 Respiratory 18 Rate Blood Pressure 143/82 O2 Sat by Pulse 98 Oximetry Medical Decision Making - Medical Decision Making Patient is a 35-year-old female here with lower left-sided dental pain 3 days. She missed her dentist appointment that was supposed to be yesterday. She was started on Augmentin and given prescription for ibuprofen. This is not helping with the pain. Her vitals are stable. There is no obvious dental abscess to drain. Patient should continue with her Augmentin, we'll give her a short prescription of [place] and toradol in the ER. She is stable for discharge. Patient is agreement with this plan of care. She will call her dentist for follow-up. Disposition Clinical Impression: Dental caries, Dental abscess, Toothache Disposition: HOME SELF-CARE Condition: Stable Instructions (If sedation given, give patient instructions): Toothache (ED) Additional Instructions: Please return to the Emergency Department if symptoms worsen or any other concerns. Continue with antibiotic as prescribed. Take ibuprofen for moderate pain, take [place] for severe pain. Follow-up with dentist. Prescriptions: Hydrocodone/Acetaminophen [[place] 5-325] 1 tab PO Q6HR PRN #10 tab PRN Reason: Pain Is patient prescribed a controlled substance at d/c from ED?: Yes When asked, does pt state using other controlled substances?: No If prescribed controlled substance>3 days was MAPS reviewed?: Prescribed <3 Days If opioid is for acute pain is fill amount 7 days or less?: Yes If Rx opioid, was Start Talking consent form obtained?: Yes Referrals: Campbell Hernandez MD [Primary Care Provider] - 1-2 days
[2020-01-07] MEDS ORDERED: ONDANSETRON 4 MG ODT STARTER PACK 2 TAB BTL PO STA (21:38)
[2020-01-07] MEDS ORDERED: HYDROcodone/APAP 5-325MG 1 EACH TAB PO STA (21:38)
[2020-01-07] MEDS ORDERED: KETOROLAC 15 MG/ML 1 ML VIAL IM STA (21:38)
== END 2020-01-07 21:52 | disposition home or self-care (01) ==
LOC: EC 21:08
DX: K04.7 Periapical abscess without sinus (principal); K02.9 Dental caries, unspecified; F17.200 Nicotine dependence, unspecified, uncomplicated; Z88.6 Allergy status to analgesic agent
CPT/HCPCS: 99282; 96372; J1885; S0119

== ENCOUNTER → 2020-03-16 | Outpatient (CLI) | payer OTHER ==
--- NOTE | 2020-03-16 18:08 | US ---
EXAMINATION TYPE: US pelvic complete DATE OF EXAM: 03/16/2020 COMPARISON: None CLINICAL HISTORY: 35-year-old female Z97.5 IUD PLACEMENT. Bleeding since having IUD placed months ago TECHNIQUE: Transabdominal sonographic images of the pelvis were acquired. Transvaginal sonographic images were medically necessary to better assess the following anatomy: IUD/endometrium Date of LMP: Unsure due to constant bleeding FINDINGS: EXAM MEASUREMENTS: Uterus: 10.0 x 3.9 x 4.8 cm Endometrial Stripe: 1.4 cm Right Ovary: 3.3 x 1.6 x 2.3 cm Left Ovary: 3.1 x 3.0 x 2.4 cm 1. Uterus: Anteverted with mildly heterogeneous myometrium. Small cervical nabothian cysts. 2. Endometrium: Appears thickened with ill-defined echogenic area with vascularity measuring 1.3 cm along the posterior, fundal endometrium. IUD is visualized in good position 3. Right Ovary: wnl 4. Left Ovary: Cyst visualized measuring 2.2 cm 5. Bilateral Adnexa: wnl 6. Posterior cul-de-sac: wnl IMPRESSION: 1. A 1.3 cm focal echogenic area along the posterior fundal endometrium. A focal adenomyoma, submucos al fibroid, and large endometrial polyp are considerations. Other endometrial lesion difficult to exc lude at this time. Consider pelvic MRI versus follow-up ultrasound in 6-8 weeks to reassess. 2. A 2.2 cm dominant follicle or functional cyst in the left ovary. 3. The IUD situated along the uterine cavity.
== END | disposition home or self-care (01) ==
LOC: RADUSWWP 16:09
PROVIDERS: ATTEND Obstetrics & Gynecology
DX: Z09 Encounter for follow-up examination after completed treatment for conditions other than malignant neoplasm (principal); R93.89 Abnormal findings on diagnostic imaging of other specified body structures; Z97.5 Presence of (intrauterine) contraceptive device
CPT/HCPCS: 76830; 76856

== ENCOUNTER 2021-02-20 10:50 | Emergency (ER) | payer OTHER ==
[2021-02-20 10:57] VITALS: RESP 18
[2021-02-20] MEDS ORDERED: KETOROLAC 15 MG/ML 1 ML VIAL IVP STA (11:18)
[2021-02-20] MEDS ORDERED: ONDANSETRON 4 MG/2 ML VIAL IVP STA (11:18)
[2021-02-20] MEDS ORDERED: SODIUM CHLORIDE 0.9% 1,000 ML IV STA (11:18)
--- NOTE | 2021-02-20 11:27 | ED ---
General Adult HPI - General Chief complaint: Abdominal Pain Stated complaint: Kidney pain Time Seen by Provider: 02/20/21 11:12 Source: patient, RN notes reviewed Mode of arrival: ambulatory Limitations: no limitations - History of Present Illness Initial comments: 36-year-old female presents to the Emergency Department with complaints of bilateral flank plain pain that radiates to the lower abdomen, onset yesterday. States it feels much like previous UTI. Has mild nausea this morning. Did not take anything to treat her symptoms. No aggravating or alleviating factors. Also states she unknown uterine fibroid or tumor that she has not followed up on, but is concerned that this may also be a contributing factor in her discomfort as well. Denies fever, chills, shortness of breath, vomiting, diarrhea, constipation, hematuria, or vaginal discharge or bleeding. - Related Data Home Medications Medication Instructions Recorded Confirmed Acetaminophen Tab [Tylenol] 650 mg PO Q4H PRN 02/20/21 02/20/21 Ibuprofen [Advil] 400 mg PO Q8HR PRN 02/20/21 02/20/21 Previous Rx's Medication Instructions Recorded Ketorolac [Toradol] 10 mg PO Q8HR #15 tab 02/20/21 Allergies Allergy/AdvReac Type Severity Reaction Status Date / Time phenazopyridine HCl Allergy Anaphylaxis Verified 02/20/21 11:57 [From Pyridium] Review of Systems ROS Statement: Those systems with pertinent positive or pertinent negative responses have been documented in the HPI. ROS Other: All systems not noted in ROS Statement are negative. Past Medical History Past Medical History: Thyroid Disorder History of Any Multi-Drug Resistant Organisms: MRSA Date of last positivie culture/infection: 05/2013 MDRO Source:: buttocks Past Surgical History: No Surgical Hx Reported Past Anesthesia/Blood Transfusion Reactions: Previous Problems w/ Anesthesia Additional Past Anesthesia/Blood Transfusion Reaction / Comment(s): MOM- PONV Past Psychological History: Anxiety, Bipolar, Depression Smoking Status: Current some day smoker Past Alcohol Use History: None Reported Past Drug Use History: None Reported - Past Family History Mother Family Medical History: Diabetes Mellitus, Deep Vein Thrombosis (DVT) General Exam Limitations: no limitations (Well-developed, well-nourished female in no acute distress. Initial temperature 99.0, pulse 88, respirations 18, blood pressure 123/86, pulse ox 99% on room air.) General appearance: alert, in no apparent distress Neck exam: Present: normal inspection. Absent: tenderness, meningismus, lymphadenopathy Respiratory exam: Present: normal lung sounds bilaterally. Absent: respiratory distress, wheezes, rales, rhonchi, stridor Cardiovascular Exam: Present: regular rate, normal rhythm, normal heart sounds. Absent: systolic murmur, diastolic murmur, rubs, gallop, clicks GI/Abdominal exam: Present: soft, tenderness (Mild suprapubic tenderness upon palpation), normal bowel sounds. Absent: distended, guarding, rebound, rigid Speculum exam: Present: normal speculum exam. Absent: vaginal bleeding By manual exam: Present: normal by manual exam. Absent: cervical motion tenderness, adnexal tenderness Back exam: Present: CVA tenderness (R), CVA tenderness (L) Neurological exam: Present: alert, oriented X3, CN II-XII intact Psychiatric exam: Present: normal affect, normal mood Skin exam: Present: warm, dry, intact, normal color. Absent: rash Course Vital Signs 02/20/21 02/20/21 10:54 13:15 Temperature 99.0 F 98.4 F Pulse Rate 88 68 Respiratory 18 18 Rate Blood Pressure 123/86 119/95 O2 Sat by Pulse 99 98 Oximetry Medical Decision Making - Medical Decision Making This is a 36-year-old female with a past medical history of uterine fibroid who presents to the emergency department for evaluation of bilateral flank and lower abdominal pain. Upon exam, patient is well-appearing and in no acute distress. Abdomen is soft with mild suprapubic tenderness and slight bilateral CVA tenderness. Vital signs are stable, patient is afebrile. She was given IV fluids and Toradol with improvement. Laboratory studies were obtained and are unremarkable with the exception of glucose 72 for which patient was given a snack. Accucheck prior to discharge was 103 and patient reported feeling fine. Urinalysis is negative. Ultrasound was obtained showing a small 2.4 cm fibroid and IUD displaced in the mid to lower uterine segment. Findings were discussed with Dr. Hawkins who recommended patient call the office on Monday and use backup contraception until that time. These findings and instructions were reiterated with patient. She will be discharged home with Toradol for discomfort and advised to avoid Motrin or ibuprofen when taking this medication. Return parameters were discussed in detail. Patient verbalizes understanding and agrees with this plan. Patient's care was discussed with my attending Dr. Arroyo. - Lab Data Result diagrams: 02/20/21 11:36 02/20/21 11:36 Lab Results 02/20/21 02/20/21 12 Range/Units 11:36 11:36 11:38 WBC 9.8 (3.8-10.6) k/uL RBC 4.80 (3.80-5.40) m/uL Hgb 13.5 (11.4-16.0) gm/dL Hct 41.8 (34.0-46.0) % MCV 87.2 (80.0-100.0) fL MCH 28.1 (25.0-35.0) pg MCHC 32.2 (31.0-37.0) g/dL RDW 14.2 (11.5-15.5) % Plt Count 229 (150-450) k/uL MPV 7.3 Neutrophils % 66 % Lymphocytes % 24 % Monocytes % 7 % Eosinophils % 2 % Basophils % 0 % Neutrophils # 6.5 (1.3-7.7) k/uL Lymphocytes # 2.3 (1.0-4.8) k/uL Monocytes # 0.7 (0-1.0) k/uL Eosinophils # 0.2 (0-0.7) k/uL Basophils # 0.0 (0-0.2) k/uL Sodium 139 (137-145) mmol/L Potassium 4.5 (3.5-5.1) mmol/L Chloride 107 (98-107) mmol/L Carbon Dioxide 24 (22-30) mmol/L Anion Gap 8 mmol/L BUN 13 (7-17) mg/dL Creatinine 0.62 (0.52-1.04) mg/dL Est GFR (CKD-EPI)AfAm >90 (>60 ml/min/1.73 sqM) Est GFR (CKD-EPI)NonAf >90 (>60 ml/min/1.73 sqM) Glucose 72 L (74-99) mg/dL POC Glucose (mg/dL) (75-99) mg/dL POC Glu Events Manager ID Calcium 8.7 (8.4-10.2) mg/dL Urine Color Yellow Urine Appearance Cloudy H (Clear) Urine pH 6.0 (5.0-8.0) Ur Specific [place] 1.023 (1.001-1.035) Urine Protein Negative (Negative) Urine Glucose (UA) Negative (Negative) Urine Ketones Negative (Negative) Urine Blood Negative (Negative) Urine Nitrite Negative (Negative) Urine Bilirubin Negative (Negative) Urine Urobilinogen <2.0 (<2.0) mg/dL Ur Leukocyte Esterase Negative (Negative) Urine RBC <1 (0-5) /hpf Urine WBC 1 (0-5) /hpf Ur Squamous Epith Cells 13 H (0-4) /hpf Urine Mucus Rare H (None) /hpf Urine HCG, Qual (Not Detectd) 02/20/21 02/20/21 Range/Units 11:38 14:42 WBC (3.8-10.6) k/uL RBC (3.80-5.40) m/uL Hgb (11.4-16.0) gm/dL Hct (34.0-46.0) % MCV (80.0-100.0) fL MCH (25.0-35.0) pg MCHC (31.0-37.0) g/dL RDW (11.5-15.5) % Plt Count (150-450) k/uL MPV Neutrophils % % Lymphocytes % % Monocytes % % Eosinophils % % Basophils % % Neutrophils # (1.3-7.7) k/uL Lymphocytes # (1.0-4.8) k/uL Monocytes # (0-1.0) k/uL Eosinophils # (0-0.7) k/uL Basophils # (0-0.2) k/uL Sodium (137-145) mmol/L Potassium (3.5-5.1) mmol/L Chloride (98-107) mmol/L Carbon Dioxide (22-30) mmol/L Anion Gap mmol/L BUN (7-17) mg/dL Creatinine (0.52-1.04) mg/dL Est GFR (CKD-EPI)AfAm (>60 ml/min/1.73 sqM) Est GFR (CKD-EPI)NonAf (>60 ml/min/1.73 sqM) Glucose (74-99) mg/dL POC Glucose (mg/dL) 103 H (75-99) mg/dL POC Glu Events Manager ID Ashly Thompson Calcium (8.4-10.2) mg/dL Urine Color Urine Appearance (Clear) Urine pH (5.0-8.0) Ur Specific [place] (1.001-1.035) Urine Protein (Negative) Urine Glucose (UA) (Negative) Urine Ketones (Negative) Urine Blood (Negative) Urine Nitrite (Negative) Urine Bilirubin (Negative) Urine Urobilinogen (<2.0) mg/dL Ur Leukocyte Esterase (Negative) Urine RBC (0-5) /hpf Urine WBC (0-5) /hpf Ur Squamous Epith Cells (0-4) /hpf Urine Mucus (None) /hpf Urine HCG, Qual Not Detected (Not Detectd) - Radiology Data Radiology results: report reviewed, image reviewed Transvaginal ultrasound was obtained. Report was reviewed in its entirety. Impression per Dr. Cassidy is 1. Small 2.4 cm fibroid of the posterior uterine body. 2. Normal endometrium. 3. IUD displaced in the mid to lower uterine segment. 4. No adnexal masses are normal and normal appearing ovaries. 5. Small amount of free fluid in the cul-de-sac. Disposition Clinical Impression: IUD migration, Uterine fibroid Disposition: HOME SELF-CARE Condition: Stable Instructions (If sedation given, give patient instructions): Intrauterine Device (DC), Abdominal Pain (ED) Additional Instructions: Follow up with your OB-CLINICAL PSYCHOLOGY TEACHER. Call the office Monday to schedule an appointment. Take Toradol for discomfort; do not take Motrin/Ibuprofen when taking Toradol. Continue to increase fluids and eat regularly. Return to the Emergency Department with any new, worsening, or concerning symptoms. Prescriptions: Ketorolac [Toradol] 10 mg PO Q8HR #15 tab Is patient prescribed a controlled substance at d/c from ED?: No Referrals: Campbell Hernandez MD [Primary Care Provider] - 1-2 days Time of Disposition: 14:27
[2021-02-20 11:44] LABS: Basophils % (A) 0 %; Eosinophils # (A) 0.2 k/uL (0-0.7); Eosinophils % (A) 2 %; HCT 41.8 % (34.0-46.0); HGB 13.5 gm/dL (11.4-16.0); Lymphocytes # (A) 2.3 k/uL (1.0-4.8); Lymphocytes % (A) 24 %; MCH 28.1 pg (25.0-35.0); MCHC 32.2 g/dL (31.0-37.0); MCV 87.2 fL (80.0-100.0); Mean Platelet Volume 7.3; Monocytes # (A) 0.7 k/uL (0-1.0); Monocytes % (A) 7 %; Neutrophils # (A) 6.5 k/uL (1.3-7.7); Neutrophils % (A) 66 %; Platelet Count 229 k/uL (150-450); RDW 14.2 % (11.5-15.5); WBC 9.8 k/uL (3.8-10.6)
[2021-02-20 11:51] LABS: African American GFR (CKD) >90 (>60 ml/min/1.73 sqM); Anion Gap 8 mmol/L; Blood Urea Nitrogen 13 mg/dL (7-17); Calcium 8.7 mg/dL (8.4-10.2); Carbon Dioxide 24 mmol/L (22-30); Chloride 107 mmol/L (98-107); Glucose 72 mg/dL (74-99); Non-African American GFR(CKD) >90 (>60 ml/min/1.73 sqM); Potassium 4.5 mmol/L (3.5-5.1); Sodium 139 mmol/L (137-145)
[2021-02-20 11:58] LABS: Appearance,Urine Cloudy (Clear); Bilirubin,Urine Negative (Negative); Blood,Urine Negative (Negative); Color,Urine Yellow; Glucose,Urine (UA) Negative (Negative); Ketones,Urine Negative (Negative); Leukocyte Esterase,Urine Negative (Negative); Mucus,Urine Rare /hpf; Nitrite,Urine Negative (Negative); Protein,Urine Negative (Negative); RBC,Urine <1 /hpf (0-5); Specific Gravity,Urine 1.023 (1.001-1.035); Squamous Epithelial Cell,Urine 13 /hpf (0-4); Urobilinogen,Urine <2.0 mg/dL (<2.0); WBC,Urine 1 /hpf (0-5)
--- NOTE | 2021-02-20 12:36 | US ---
EXAMINATION TYPE: US transvaginal DATE OF EXAM: 02/20/2021 COMPARISON: US CLINICAL HISTORY: lower abdominal pain, known uterine fibroid. patient with pelvic pain x 2 days; IUD since 04/2020; TECHNIQUE: Transvaginal (TV). Transvaginal sonographic images were acquired per physician. Date of LMP: 02/04/2021 EXAM MEASUREMENTS: Uterus: 9.6 x 6.0 x 5.3 cm Endometrial Stripe: 1.1 cm Right Ovary: 2.9 x 1.7 x 1.6 cm Left Ovary: 3.1 x 2.5 x 2.4 cm 1. Uterus: Anteverted; Multiple Nabothian Cysts seen in cervix with largest = 1.0 x 0.8 x 0.6cm; hy poechoic oval area seen upper myometrium and may be uterine fibroid = 1.1 x 1.4 x 0.9cm. 2. Endometrium: thickness is wnl for Day 17 LMP; abnormal location of IUD is noted as is seen in Mid to SAMANTHA near internal OS. 3. Right Ovary: multiple small follicles are seen. 4. Left Ovary: multifollicular with largest as involuting complex cyst = 1.3 x 1.4 x 1.2cm Spectral, color and waveform doppler imaging shows good arterial and venous flow within the ovaries ; there is no evidence for ovarian torsion. 5. Bilateral Adnexa: wnl 6. Posterior cul-de-sac: small amount of free fluid is seen = 1.2 x 1.3 x 0.5cm. IMPRESSION: 1. Small 2.4 cm fibroid of the posterior uterine body. 2. Normal endometrium. 3. IUD displaced in mid to lower uterine segment 4. No adnexal masses and normal appearing ovary 5. small amount of free fluid in the cul-de-sac.
[2021-02-20 13:16] VITALS: BP 119/95; PULSE 68; TEMP 98.4
[2021-02-20 14:43] LABS: Glucose,Whole Blood 103 mg/dL (75-99)
== END 2021-02-20 14:45 | disposition home or self-care (01) ==
LOC: EC 10:50
DX: D25.9 Leiomyoma of uterus, unspecified (principal); T83.32XA Displacement of intrauterine contraceptive device, initial encounter; E07.9 Disorder of thyroid, unspecified; F41.9 Anxiety disorder, unspecified; F31.9 Bipolar disorder, unspecified; F17.200 Nicotine dependence, unspecified, uncomplicated; X58.XXXA Exposure to other specified factors, initial encounter
CPT/HCPCS: 99284; 96374; 96375; 96361 ×2; 36415; 80048; 85025; 81001; 81025; 93975; 76830; J2405; J1885

== ENCOUNTER → 2021-05-12 | Outpatient (CLI) | payer OTHER ==
--- NOTE | 2021-05-12 10:34 | US ---
EXAMINATION TYPE: US pelvis complete transvag DATE OF EXAM: 05/12/2021 COMPARISON: 02/20/2021 CLINICAL HISTORY: D25.9 Uterine fibroids. follow up possible uterine fibroids. irregular menses. back pain. IUD TECHNIQUE: Transvaginal (TV) and Transabdominal (TA) . Transabdominal sonographic images of the pel vis were acquired. Transvaginal sonographic images were medically necessary to better assess the fol lowing anatomy: uterus Date of LMP: unknown EXAM MEASUREMENTS: Uterus: 9.9 x 5.0 x 5.7 cm Endometrial Stripe: 0.7 cm Right Ovary: 3.1 x 1.6 x 1.6 cm Left Ovary: 3.8 x 2.6 x 2.8 cm 1. Uterus: Anteverted Nabothian cysts. heterogenous myometrium. no distinct fibroids noted at this time 2. Endometrium: IUD visualized within SAMANTHA 3. Right Ovary: follicles noted 4. Left Ovary: cystic area = 2.7 x 2.4 x 2.1cm 5. Bilateral Adnexa: wnl 6. Posterior cul-de-sac: wnl IMPRESSION: Heterogenous uterine myometrium could reflect small leiomyomatous change. IUD is noted to be in place . Probable follicular cyst left ovary.
== END | disposition home or self-care (01) ==
LOC: RADUSWWP 08:53
PROVIDERS: ATTEND Obstetrics & Gynecology
DX: N85.8 Other specified noninflammatory disorders of uterus (principal); Z97.5 Presence of (intrauterine) contraceptive device
CPT/HCPCS: 76830; 76856

== ENCOUNTER 2021-06-04 10:52 | Emergency (ER) | payer OTHER ==
[2021-06-04 11:01] VITALS: BP 143/90; PULSE 80; RESP 20; TEMP 98
[2021-06-04] MEDS ORDERED: ONDANSETRON 4 MG/2 ML VIAL IVP STA (11:31)
[2021-06-04] MEDS ORDERED: SODIUM CHLORIDE 0.9% 1,000 ML IV STA (11:31)
[2021-06-04] MEDS ORDERED: KETOROLAC 15 MG/ML 1 ML VIAL IVP STA (11:31)
[2021-06-04] MEDS ORDERED: diphenhydrAMINE 50 MG/ML 1 ML VIAL IVP STA (11:31)
[2021-06-04] MEDS ORDERED: CAFFEINE-SODIUM BENZOATE 500 MG in SODIUM CHLORIDE 0.9% 1,000 ML IVPB ONE (14:12)
--- NOTE | 2021-06-04 14:53 | ED ---
General Adult HPI - General Chief complaint: Headache Stated complaint: Headache Time Seen by Provider: 06/04/21 11:14 Source: patient Mode of arrival: ambulatory Limitations: no limitations - History of Present Illness Initial comments: Patient is a 36-year-old female presenting with chief complaint of headache. She has a history of migraines and this feels similar to migraines she has had in the past. Patient has been experiencing a headache for the last 3 days. It is located in the forehead and at the base of the head, feels that a band tightening around the head. Patient has been taking Motrin, Tylenol, Excedrin with little relief. Patient has been experiencing some nausea, no vomiting. Patient denies fever, chills, nausea, vomiting, neck stiffness, chest pain, shortness of breath, abdominal pain, rash, weakness, palpitations. - Related Data Home Medications Medication Instructions Recorded Confirmed Acetaminophen Tab [Tylenol] 650 mg PO Q4H PRN 02/20/21 02/20/21 Ibuprofen [Advil] 400 mg PO Q8HR PRN 02/20/21 02/20/21 Previous Rx's Medication Instructions Recorded Ketorolac [Toradol] 10 mg PO Q8HR #15 tab 02/20/21 Allergies Allergy/AdvReac Type Severity Reaction Status Date / Time phenazopyridine HCl Allergy Anaphylaxis Verified 06/04/21 11:01 [From Pyridium] Review of Systems ROS Statement: Those systems with pertinent positive or pertinent negative responses have been documented in the HPI. ROS Other: All systems not noted in ROS Statement are negative. Past Medical History Past Medical History: Thyroid Disorder Additional Past Medical History / Comment(s): Migraine History of Any Multi-Drug Resistant Organisms: MRSA Date of last positivie culture/infection: 05/2013 MDRO Source:: buttocks Past Surgical History: No Surgical Hx Reported Past Anesthesia/Blood Transfusion Reactions: Previous Problems w/ Anesthesia Additional Past Anesthesia/Blood Transfusion Reaction / Comment(s): MOM- PONV Past Psychological History: Anxiety, Bipolar, Depression Smoking Status: Current every day smoker Past Alcohol Use History: None Reported Past Drug Use History: None Reported - Past Family History Mother Family Medical History: Diabetes Mellitus, Deep Vein Thrombosis (DVT) General Exam Limitations: no limitations General appearance: alert, in no apparent distress Head exam: Present: atraumatic, normocephalic, normal inspection Eye exam: Present: normal appearance, PERRL, EOMI. Absent: scleral icterus, conjunctival injection, periorbital swelling Pupils: Present: normal accommodation ENT exam: Present: normal exam, mucous membranes moist Neck exam: Present: normal inspection, full ROM. Absent: tenderness, meningismus, lymphadenopathy Respiratory exam: Present: normal lung sounds bilaterally. Absent: respiratory distress, wheezes, rales, rhonchi, stridor Cardiovascular Exam: Present: regular rate, normal rhythm, normal heart sounds. Absent: systolic murmur, diastolic murmur, rubs, gallop, clicks Neurological exam: Present: alert, oriented X3, CN II-XII intact Expanded Patient oriented to: Present: person, place, time Speech: Present: fluid speech Cranial nerves: EOM's Intact: Normal Motor strength exam: RUE: 5, LUE: 5 Eye Response: (4) open spontaneously Motor Response: (6) obeys commands Verbal Response: (5) oriented [place] Total: 15 Psychiatric exam: Present: normal affect, normal mood Skin exam: Present: warm, dry, intact, normal color. Absent: rash Course Vital Signs 06/04/21 11:00 Temperature 98 F Pulse Rate 80 Respiratory 20 Rate Blood Pressure 143/90 O2 Sat by Pulse 99 Oximetry Medical Decision Making - Medical Decision Making Patient is a 36-year-old female presenting with chief complaint of headache. Patient states this feels like migraines that she has had in the past. She admits to nausea with no vomiting. On exam there are no focal neuro deficits, no neck stiffness, neck has full range of motion, patient is afebrile. Patient was given 1 L normal saline fluid bolus, 4 mg Zofran, 50 mg Toradol, 25 mg Benadryl. She states that her pain went from a 9/10 to a 5/10. I offered the patient caffeine in the form of and IV piggyback, patient stated that she was feeling well and wished to go home at this time. Patient appears stable for discharge at this time. Take Motrin and Tylenol as needed for pain relief. Stay well-hydrated, caffeinated beverages may help with headaches. Take Benadryl as needed per package instructions. Follow-up with PCP in one day. Report back to ER with any worsening symptoms. I answered all questions and educated the patient on return parameters. Patient conveyed verbal understanding and agreed to the plan. Disposition Clinical Impression: Migraine headache Disposition: HOME SELF-CARE Condition: Good Instructions (If sedation given, give patient instructions): Migraine Headache (ED), Acute Headache (ED) Additional Instructions: Follow up with PCP in 1-2 days. Tale Motrin, tylenol, benadryl as needed for pain relief. Stay well hydrated. Caffeinated beverages may help control the pain. Report back to ER with worsening symptoms or new onset alarming symptoms, including but not limited to increasing pain, vision or hearing changes, fever, chills, neck stiffness, vomiting. Is patient prescribed a controlled substance at d/c from ED?: No Referrals: Campbell Hernandez MD [Primary Care Provider] - 1-2 days Time of Disposition: 14:52
== END 2021-06-04 15:02 | disposition home or self-care (01) ==
LOC: EC 10:52
DX: G43.909 Migraine, unspecified, not intractable, without status migrainosus (principal); E07.9 Disorder of thyroid, unspecified; F41.9 Anxiety disorder, unspecified; F31.9 Bipolar disorder, unspecified; F17.200 Nicotine dependence, unspecified, uncomplicated
CPT/HCPCS: 99283; 96374; 96375 ×2; 96361 ×3; J1200; J2405; J1885

== ENCOUNTER 2021-06-13 15:16 | Emergency (ER) | payer OTHER ==
[2021-06-13 15:52] VITALS: BP 128/86; PULSE 86; RESP 16; TEMP 98.2
[2021-06-13] MEDS ORDERED: PROPARACAINE 0.5% OPHTH DROPS 15 ML BTL LEFT EYE STA (16:58)
[2021-06-13] MEDS ORDERED: FLUORESCEIN STRIPS 1 MG STRIP LEFT EYE ONE (16:59)
--- NOTE | 2021-06-13 17:22 | ED ---
Eye Problem HPI - General Chief complaint: Eye Problems Stated complaint: L eye lac Time Seen by Provider: 06/13/21 16:50 Source: patient, RN notes reviewed, old records reviewed Mode of arrival: ambulatory Limitations: no limitations - History of Present Illness Initial comments: Patient is a 36-year-old female who presents with 1 day of left eye irritation. Patient reports that she awoke with her left eye sensitive to light, significant drainage and crusting. Patient states that she does wear contacts. She reports that she did remove her contacts last night. She denies any new makeup or exposure. Patient states that she has no significant pain in the right eye. She denies any floaters or visual disturbances but reports that her vision is difficult due to sensitivity of light. She denies headache, trauma to the eye, or sinus pressure. - Related Data Home Medications Medication Instructions Recorded Confirmed Acetaminophen Tab [Tylenol] 650 mg PO Q4H PRN 02/20/21 02/20/21 Ibuprofen [Advil] 400 mg PO Q8HR PRN 02/20/21 02/20/21 Previous Rx's Medication Instructions Recorded Ketorolac [Toradol] 10 mg PO Q8HR #15 tab 02/20/21 Ciprofloxacin Ophth Soln [Cipro 1 drops LEFT EYE Q4HR #5 ml 06/13/21 Ophth Soln] Allergies Allergy/AdvReac Type Severity Reaction Status Date / Time phenazopyridine HCl Allergy Anaphylaxis Verified 06/13/21 15:52 [From Pyridium] Review of Systems ROS Statement: Those systems with pertinent positive or pertinent negative responses have been documented in the HPI. ROS Other: All systems not noted in ROS Statement are negative. Past Medical History Past Medical History: Thyroid Disorder Additional Past Medical History / Comment(s): Migraine History of Any Multi-Drug Resistant Organisms: MRSA Date of last positivie culture/infection: 05/2013 MDRO Source:: buttocks Past Surgical History: No Surgical Hx Reported Past Anesthesia/Blood Transfusion Reactions: Previous Problems w/ Anesthesia Additional Past Anesthesia/Blood Transfusion Reaction / Comment(s): MOM- PONV Past Psychological History: Anxiety, Bipolar, Depression Smoking Status: Current every day smoker Past Alcohol Use History: None Reported Past Drug Use History: None Reported - Past Family History Mother Family Medical History: Diabetes Mellitus, Deep Vein Thrombosis (DVT) General Exam - General Exam Comments Initial Comments: 36 year old female, no acute distress. Limitations: no limitations General appearance: alert, in no apparent distress Head exam: Present: atraumatic, normocephalic, normal inspection Eye exam: Present: PERRL, EOMI. Absent: normal appearance (Tachycardia gentle injection. Fluorescein eye exam was performed and evidence of abrasion at the 5 to 6 o'clock position of the iris. IOP of the left eye 17, IOP of the right eye is 14 completed with Dami-Pen. It does have sensitivity to the left eye with bright lights), scleral icterus, conjunctival injection, periorbital swelling ENT exam: Present: normal exam, mucous membranes moist Neck exam: Present: normal inspection. Absent: tenderness, meningismus, lymphadenopathy Respiratory exam: Present: normal lung sounds bilaterally. Absent: respiratory distress, wheezes, rales, rhonchi, stridor Cardiovascular Exam: Present: regular rate, normal rhythm, normal heart sounds. Absent: systolic murmur, diastolic murmur, rubs, gallop, clicks Extremities exam: Present: normal inspection, full ROM, normal capillary refill. Absent: tenderness, pedal edema, joint swelling, calf tenderness Back exam: Present: normal inspection Neurological exam: Present: alert, oriented X3 Skin exam: Present: warm, dry Course Vital Signs 06/13/21 15:51 Temperature 98.2 F Pulse Rate 86 Respiratory 16 Rate Blood Pressure 128/86 O2 Sat by Pulse 96 Oximetry Medical Decision Making - Medical Decision Making 36-year-old female presents with left eye irritation and believes that she has pinkeye. She is a contact wear. She reports that she frequently does not remove her contacts. She reports that she did remove them last night but woke up today with left eye pain and irritation and crusting. On exam with fluorescein eye stain Patient is evidence of an abrasion at the 5-6 opposition. Patient advised to discontinue wearing contacts. Will be prescribed antibiotic drops for the eye. I discussed proper follow-up with ophthalmology with concern for abrasion and being contact lens wearer. Patient understands treatment plan will comply. Disposition Clinical Impression: Abrasion of eye, Wears contact lenses Disposition: HOME SELF-CARE Instructions (If sedation given, give patient instructions): Corneal Abrasion (ED) Additional Instructions: Patient advised follow-up tomorrow with Dr. Velazquez. Put the eye drop and every 4 hours. Return to emergency department if any alarming signs or symptoms occur. Prescriptions: Ciprofloxacin Ophth Soln [Cipro Ophth Soln] 1 drops LEFT EYE Q4HR #5 ml Is patient prescribed a controlled substance at d/c from ED?: No Referrals: Campbell Hernandez MD [Primary Care Provider] - 1-2 days Elieser Velazquez MD [STAFF PHYSICIAN] - 1-2 days Time of Disposition: 17:19
== END 2021-06-13 17:31 | disposition home or self-care (01) ==
LOC: EC 15:16
DX: S05.02XA Injury of conjunctiva and corneal abrasion without foreign body, left eye, initial encounter (principal); E07.9 Disorder of thyroid, unspecified; F41.9 Anxiety disorder, unspecified; F31.9 Bipolar disorder, unspecified; F17.200 Nicotine dependence, unspecified, uncomplicated; Z88.1 Allergy status to other antibiotic agents; X58.XXXA Exposure to other specified factors, initial encounter
CPT/HCPCS: 99283

== ENCOUNTER → 2022-05-26 | Outpatient (CLI) | payer BC, OTHER ==
--- NOTE | 2022-05-27 07:59 | MM ---
Reason for Exam: Screening (asymptomatic). Baseline mammogram. Patient History: Menarche at age 11. First Full-Term at age 19. Last menstrual period: 05/12/2022 Risk Values: Odette 5 year model risk: 0.4%. NCI Lifetime model risk: 9.1%. Prior Study Comparison: Patient's first Mammogram. Tissue Density: There are scattered fibroglandular densities. Findings: Analyzed By CAD. There is no suspicious group of microcalcifications or new suspicious mass in either breast. Overall Assessment: Negative, BI-RAD 1 Management: Screening Mammogram of both breasts in 1 year. A clinical breast exam by your physician is recommended on an annual basis and results should be correlated with mammographic findings. Electronically signed and approved by: Cordell Emmanuel M.D. Radiologis
== END | disposition home or self-care (01) ==
LOC: RADMAMWWP 13:20
PROVIDERS: ATTEND Obstetrics & Gynecology
DX: Z12.31 Encounter for screening mammogram for malignant neoplasm of breast (principal)
CPT/HCPCS: 77067